=== PATIENT | female | born 1955 | race Caucasian/White ===

== ENCOUNTER 2016-12-02 20:25 | Emergency (ER) | payer MEDICARE, MEDICAID ==
[~2016-12-02] VITALS: Ht 162.6 cm; Wt 45.4 kg
[~2016-12-02 20:25] MED LIST: BISA10SU45 PO; CARI-277 OR; DIPH1TAB; HYDR4TAB21 PO; PHENERGAN PO; TRAZ50TA2 PO
[2016-12-02 21:49] LABS: Basophils # (auto) 0.1 uL; Nucleated Red Blood Cells % 0.1 %; White Blood Cell 5.3 10^3/uL (4.4-10.8)
[2016-12-02 21:51] LABS: Eosinophils # (auto) 0.1 uL; Eosinophils % (auto) 1.2 % (0.0-7.0); Hematocrit 28.2 % (36.0-46.0); Hemoglobin 8.6 g/dL (12.2-16.2); Lymphocytes # (auto) 1.5 uL; Lymphocytes % (auto) 28.9 % (10.0-50.0); Mean Corpuscular Hemoglobin 23.3 pg (28.0-32.0); Mean Corpuscular Hgb Conc. 30.6 g/dL (32.0-36.0); Mean Corpuscular Volume 76.3 fL (80.0-100.0); Mean Platelet Volume 7.7 fL (6.9-10.8); Monocytes # (auto) 0.8 uL; Monocytes % (auto) 14.7 % (0.0-12.0); Neutrophils # (auto) 2.8 uL; Neutrophils % (auto) 53.2 % (37.0-80.0); Platelet Count (auto) 340 10^3/uL (140-450)
[2016-12-02 21:58] LABS: Red Cell Distribution Width 25.7 % (11.8-14.3)
[2016-12-02] MEDS ORDERED: ONDANSETRON HCL 4 MG/2 ML VIAL IV ONE (22:00)
[2016-12-02] MEDS ORDERED: HYDROmorphone HCL 2 MG/ML VL IV ONE ×2 (22:00→23:00)
[2016-12-02] MEDS ORDERED: SODIUM CHLORIDE 0.9% 1,000 ML IV ONE (22:00)
[2016-12-02 22:04] LABS: INR 1.01 (0.9-1.15); Partial Thromboplastin Time 32.7 sec (22.64-33.71)
[2016-12-02 22:14] LABS: Albumin 2.7 g/dL (3.4-5.0); Alkaline Phosphatase 66 U/L (45-117); Amylase 41 U/L (25-115); Anion Gap 5 (5-15); Aspartate Aminotransferase 42 U/L (15-37); BUN/Creatinine Ratio 38.2; Bilirubin, Total 0.2 mg/dL (0.2-1.0); Blood Urea Nitrogen 13 mg/dL (7-18); Calcium 7.6 mg/dL (8.5-10.1); Carbon Dioxide 28 mmol/L (21-32); Chloride 104 mmol/L (98-107); GFR African American 252 mL/min; GFR Non-African American 208 mL/min; Glucose 89 mg/dL (74-106); Magnesium 2.1 mg/dL (1.6-2.6); Platelet Estimate Adequate; Potassium 4.2 mmol/L (3.5-5.1); Sodium 137 mmol/L (136-145); Total Protein 5.6 g/dL (6.4-8.2)
[2016-12-02 22:18] LABS: Ovalocytes FEW; Stomatocytes Few
[2016-12-02 22:19] LABS: Anisocytosis Moderate; Hypochromia Moderate
[2016-12-02 22:20] LABS: Microcytosis Moderate
[2016-12-02 22:26] LABS: Giant Platelets Few
[2016-12-02 22:27] LABS: Tear Drop Cells FEW
[2016-12-02 22:28] LABS: Polychromasia Slight
[2016-12-02 22:29] LABS: Schistocytes FEW
[2016-12-02 23:06] LABS: Urine Bilirubin Negative (Negative); Urine Blood Negative /uL (Negative); Urine Color Yellow (Yellow); Urine Glucose Normal (Normal); Urine Ketone Negative (Negative); Urine Nitrite Negative (Negative); Urine RBC <1 /hpf (0 - 4); Urine Squamous Epithelial Cell FEW /hpf (<5); Urine Urobilinogen Normal (Negative); Urine pH 6.5 (5.0-8.0)
[2016-12-02 23:14] VITALS: BP 143/82
== END 2016-12-03 00:37 | disposition home or self-care (01) ==
LOC: ER 20:28
DX: K59.00 Constipation, unspecified (principal); I48.91 Unspecified atrial fibrillation; J45.909 Unspecified asthma, uncomplicated; I12.9 Hypertensive chronic kidney disease with stage 1 through stage 4 chronic kidney disease, or unspecified chronic kidney disease; N18.9 Chronic kidney disease, unspecified; K21.9 Gastro-esophageal reflux disease without esophagitis; M19.90 Unspecified osteoarthritis, unspecified site; Z98.51 Tubal ligation status; Z90.710 Acquired absence of both cervix and uterus; Z85.07 Personal history of malignant neoplasm of pancreas; K86.1 Other chronic pancreatitis; Z79.899 Other long term (current) drug therapy; Z91.041 Radiographic dye allergy status
CPT/HCPCS: 36415; 71010; 74176; 80053; 80307; 81001; 82150; 83690; 83735; 84484; 85025; 85610; 85730; 93005; 96361; 96374; 96375; 96376; 99285; J1170; J2405

== ENCOUNTER 2017-01-26 01:19 | Emergency (ER) | payer MEDICARE, MEDICAID ==
[~2017-01-26] VITALS: Ht 162.6 cm; Wt 47.6 kg
[2017-01-26 01:39] VITALS: BP 131/52
[2017-01-26 02:23] LABS: Urine RBC None Seen /hpf (0 - 4)
[2017-01-26 02:36] LABS: Urine Bilirubin Negative (Negative); Urine Blood Negative /uL (Negative); Urine Glucose Normal (Normal); Urine Ketone Negative (Negative); Urine Nitrite Negative (Negative); Urine Squamous Epithelial Cell FEW /hpf (<5); Urine Urobilinogen Normal (Negative); Urine pH 6.5 (5.0-8.0)
[2017-01-26 02:39] LABS: Urine Color Straw (Yellow)
== END 2017-01-26 04:11 | disposition left against medical advice (07) ==
LOC: ER 01:24
DX: R07.9 Chest pain, unspecified (principal); Z53.21 Procedure and treatment not carried out due to patient leaving prior to being seen by health care provider
CPT/HCPCS: 71010; 80307; 81001; 93005

== ENCOUNTER 2019-05-13 12:45 | Inpatient (IN) | payer MEDICARE, MEDICAID ==
[2019-05-13] VITALS (27 sets, daily range): BP systolic 88–120; BP diastolic 48–79
[~2019-05-13] VITALS: Ht 160 cm; Wt 39.6 kg
[~2019-05-13 12:45] MED LIST changes: -HYDR4TAB21 PO; +HYDR4TAB90 PO
[2019-05-13] MEDS ORDERED: SODIUM CHLORIDE 0.9% 1,000 ML IV ONE ×2 (12:53)
[2019-05-13] MEDS ORDERED: cefTRIAXone 1GM/50ML D5W 50 ML IV ONE (13:00)
[2019-05-13] MEDS ORDERED: ETOMIDATE (2MG/ML) 20ML VIAL IV ONE ×2 (13:09→13:45)
[2019-05-13] MEDS ORDERED: SUCCINYLCHOLINE CHLORIDE 20 MG/ML 10ML VIAL IV ONE ×2 (13:09→13:45)
[2019-05-13] MEDS ORDERED: MIDAZOLAM DRIP 50 mg/50mL 50 ML IV ONE (13:10)
[2019-05-13 13:25] LABS: Basophils # (auto) 0 10 ^3/uL (0-0.2); Basophils % (auto) 0.3 % (0.0-2.0); Eosinophils # (auto) 0.1 10 ^3/uL (0-0.8); Monocytes # (auto) 0.8 10 ^3/uL (0-1.3); Monocytes % (auto) 7.2 % (0.0-12.0); Neutrophils # (auto) 6.6 10 ^3/uL (1.6-8.6); White Blood Cell 10.7 10^3/uL (4.4-10.8)
[2019-05-13 13:27] LABS: Eosinophils % (auto) 0.6 % (0.0-7.0); Hematocrit 33.8 % (36.0-46.0); Hemoglobin 10.3 g/dL (12.2-16.2); Lymphocytes # (auto) 3.3 10 ^3/uL (0.4-5.4); Lymphocytes % (auto) 30.6 % (10.0-50.0); Mean Corpuscular Hemoglobin 22.2 pg (28.0-32.0); Mean Corpuscular Hgb Conc. 30.5 g/dL (32.0-36.0); Mean Corpuscular Volume 72.6 fL (80.0-100.0); Neutrophils % (auto) 61.3 % (37.0-80.0); Nucleated Red Blood Cells % 0.2 %; Platelet Count (auto) 321 10^3/uL (140-450); Red Blood Cells 4.65 10^6/uL (4.0-5.20); Red Cell Distribution Width 18.3 % (11.8-14.3)
[2019-05-13] MEDS: MIDAZOLAM DRIP 50 mg/50mL 50 ML IV SCH ×2 (13:30→22:46)
[2019-05-13 13:43] LABS: INR 1.18 (0.9-1.15); Partial Thromboplastin Time 23.9 sec (23.64-32.05)
[2019-05-13] MEDS ORDERED: NOREPINEPHRINE 8 MG/250ML KIT 250 ML IV ONE (13:43)
[2019-05-13] MEDS: NOREPINEPHRINE 8 MG/250ML KIT 250 ML IV SCH (13:44)
[2019-05-13 13:48] LABS: Albumin 2.7 g/dL (3.4-5.0); Anion Gap 7 (5-15); Blood Urea Nitrogen 14 mg/dL (7-18); Calcium 7.8 mg/dL (8.5-10.1); Carbon Dioxide 26 mmol/L (21-32); Chloride 108 mmol/L (98-107); Glucose 241 mg/dL (74-106); Potassium 3.1 mmol/L (3.5-5.1); Sodium 141 mmol/L (136-145)
[2019-05-13 13:51] LABS: Lactic Acid w/Reflex 3.8 mmol/L (0.4-2.0)
[2019-05-13 13:53] LABS: Alanine Aminotransferase 35 U/L (13-56); Alkaline Phosphatase 179 U/L (45-117); Aspartate Aminotransferase 30 U/L (15-37); BUN/Creatinine Ratio 15.4; Bilirubin, Total 0.3 mg/dL (0.2-1.0); GFR African American 80 mL/min; GFR Non-African American 66 mL/min; Total Protein 5.9 g/dL (6.4-8.2)
[2019-05-13] MEDS ORDERED: ONDANSETRON HCL 4 MG/2 ML VIAL IV ONE (15:30)
[2019-05-13] MEDS ORDERED: MORPHINE SULFATE 4 MG/ML SYR/VIAL IV ONE (15:30)
[2019-05-13] MEDS ORDERED: NITROGLYCERIN 0.4 MG SL TAB SL PRN (16:15)
[2019-05-13] MEDS ORDERED: BISACODYL 10 MG RECT SUPP PR ONE (16:15)
[2019-05-13] MEDS ORDERED: VANCOMYCIN PER PHARMACY 0 MG IV SCH (16:15)
[2019-05-13] MEDS ORDERED: ACETAMINOPHEN 500 MG TAB PO PRN (16:15)
[2019-05-13] MEDS ORDERED: MORPHINE SULF INJ 2 MG/ML SYRINGE 1ML IV PRN (16:15)
--- NOTE | 2019-05-13 16:45 | NUR ---
REPORT Report received from Rogelio FERNANDEZ, awaiting for patient to arrive into room 112.
[2019-05-13] MEDS ORDERED: VANCOMYCIN 750mg/250ml 250 ML IV SCH (17:00)
--- NOTE | 2019-05-13 17:00 | NUR ---
RECEIVED PATIENT Received patient on mechanical ventilator sedated on Versed at 10mg. Patient opens eyes to verbal stimuli, withdrawals to pain, pupils reactive to light and positive gag reflex. Sinus rhythm in the 80's on bedside monitor, pulses palpable on upper/lower extremities and no edema observed. OG tube checked and verified via air bolus: clamped. Abdomen soft, non tender and non distended with hypoactive bowel sounds. Last bowel movement 05/13/2019 per ER nurse report. Kwan catheter draining to gravity clear yellow urine to gravity. Clayton cath to the right upper chest infusing Versed at 10mg and Levophed at 12mcg. Left subclavian(TLC): good blood return and flushes easily infusing NS at TKO for ANTIBIOTICS and NS with 20 of KCL at 100ml/hr. Skin intact other than scarring on abdomen and blanchable redness to bilateral heels. Call light within reach and bed at lowest position.
--- NOTE | 2019-05-13 17:30 | NUR ---
FAMILY Family at bedside updated on patient condition. Informed patient of policies for visiting. Questions answered.
[2019-05-13] MEDS: SOD CHL 0.9%/ KCL 20MEQ 1,000 ML IV SCH (17:45)
[2019-05-13] MEDS: LACTULOSE 20Gm/30ML SOLN GT SCH (18:00)
[2019-05-13] MEDS: IPRATROPIUM BROM 0.5 MG/2.5ML INH SOL NEB SCH (18:25)
[2019-05-13] MEDS: BUDESONIDE (INHALATION) 0.5 MG/2 ML NEB NEB SCH (18:25)
[2019-05-13] MEDS: ALBUTEROL SULF 2.5 MG/0.5ML(0.5%) NEB SOLN NEB SCH (18:25)
--- NOTE | 2019-05-13 19:00 | NUR ---
Opening note Assumed care of patient at this time. Report received from day shift RN. POC reviewed. Head to toe assessment complete, see intervention spreadsheet for complete details. Received pt intubated/sedated on levophed. IV sites benign. Kwan catheter draingig to gravity. VSS. Suction and BVM at bedside. Bed locked and in lowest position, safety precautions in place. Will continue with care.
--- NOTE | 2019-05-13 20:00 | NUR ---
Temp Oral temp 101.7 cooling measures initiated. VSS.
--- NOTE | 2019-05-13 20:15 | NUR ---
Elimination Pt incontinent of loose stool. Pt cleaned and reposition. Pt tolerated well.
[2019-05-13] MEDS: PROPOFOL 100 ML IV SCH (21:06)
--- NOTE | 2019-05-13 21:49 | NUR ---
Temp reassessment 101.3 continue with cooling measures.
--- NOTE | 2019-05-13 21:50 | NUR ---
Dr Holder at [facility]. Update POC with family. Orders received.
[2019-05-13] MEDS: fentaNYL Drip 2500mCg/250mlNS 250 ML IV SCH (21:57)
[2019-05-13] MEDS: METOCLOPRAMIDE HCL 5MG/ml INJ 2ml VIAL IV SCH (22:00)
[2019-05-13] MEDS: MEROPENEM 1GM IVPB 100 ML IV SCH (22:01)
--- NOTE | 2019-05-13 22:15 | NUR ---
Urine sample and MRSA sent to lab at this time.
[2019-05-14] VITALS (91 sets, daily range): BP systolic 62–164; BP diastolic 34–131
[2019-05-14] MEDS: IPRATROPIUM BROM 0.5 MG/2.5ML INH SOL NEB SCH ×4 (00:12→18:45)
[2019-05-14] MEDS: ALBUTEROL SULF 2.5 MG/0.5ML(0.5%) NEB SOLN NEB SCH ×4 (00:12→18:45)
[2019-05-14 00:33] LABS: Urine Bacteria FEW /hpf (None Seen); Urine Blood Negative /uL (Negative); Urine Hyaline Cast MANY /lpf (0 - 2); Urine Mucus FEW (None Seen); Urine Specific Gravity 1.017 (1.001-1.035); Urine WBC 3 /hpf (0 - 5)
[2019-05-14] MEDS: NOREPINEPHRINE 8 MG/250ML KIT 250 ML IV SCH (03:15)
[2019-05-14] MEDS: SOD CHL 0.9%/ KCL 20MEQ 1,000 ML IV SCH ×3 (03:22→22:15)
--- NOTE | 2019-05-14 03:36 | NUR ---
Bed bath/elimination PT given bed bad with andrey and oral care. PT tolerated well. Pt had formed stool with liquid stool. No skin integrity changes noted. Suction tubing and canisters changed at this time. Safety precautions maintained.
--- NOTE | 2019-05-14 03:46 | NUR ---
Titrating patient as tolerated. Addendum: 05/14/19 at 0346 by CLARA PENA RN Amended: Links added.
[2019-05-14 04:09] LABS: Hemoglobin 10.9 g/dL (12.2-16.2); Mean Corpuscular Hgb Conc. 30.1 g/dL (32.0-36.0)
[2019-05-14 04:12] LABS: Mean Corpuscular Hemoglobin 22.1 pg (28.0-32.0); Mean Corpuscular Volume 73.2 fL (80.0-100.0); Platelet Count (auto) 245 10^3/uL (140-450); Red Blood Cells 4.92 10^6/uL (4.0-5.20); Red Cell Distribution Width 19.2 % (11.8-14.3)
[2019-05-14 04:13] LABS: White Blood Cell 32.9 10^3/uL (4.4-10.8)
[2019-05-14 04:14] LABS: Basophils % (manual) 0 (0.0-2.0); Blast Cells 0; Eosinophils % (manual) 0 (0-7); Metamyelocytes % 0; Myelocytes % 0; Promyelocytes % 0; Reactive Lymphocytes 0
--- NOTE | 2019-05-14 04:27 | NUR ---
Temp 0400 temp 100.7. Tylenol suppository given.
[2019-05-14 04:28] LABS: Potassium 3.9 mmol/L (3.5-5.1)
[2019-05-14] MEDS: ACETAMINOPHEN 650 MG RECT SUPP PR PRN ×2 (04:28→18:30)
[2019-05-14 04:34] LABS: Albumin 2.4 g/dL (3.4-5.0); BUN/Creatinine Ratio 16.5; Bilirubin, Total 0.4 mg/dL (0.2-1.0); Calcium 7.1 mg/dL (8.5-10.1); Total Protein 5.5 g/dL (6.4-8.2)
--- NOTE | 2019-05-14 04:53 | NUR ---
Temp reassessment 99.7. VSS.
[2019-05-14 05:46] LABS: Band Neutrophils % (manual) 1
[2019-05-14 05:47] LABS: Lymphocytes % (manual) 12 (10.0-50.0); Monocytes % (manual) 5 (0-12)
[2019-05-14] MEDS: METOCLOPRAMIDE HCL 5MG/ml INJ 2ml VIAL IV SCH (06:00)
[2019-05-14] MEDS: LACTULOSE 20Gm/30ML SOLN GT SCH ×4 (06:00→12:00)
[2019-05-14] MEDS: MEROPENEM 1GM IVPB 100 ML IV SCH ×3 (06:00→22:23)
[2019-05-14] MEDS: BUDESONIDE (INHALATION) 0.5 MG/2 ML NEB NEB SCH ×2 (06:03→18:45)
--- NOTE | 2019-05-14 06:07 | NUR ---
Per daughter gustavo Do not give Reglan, pt had taken it previously for constipation and had extrapyramidal symptoms and would prefer something else for constipation. Will convey to day shift.
--- NOTE | 2019-05-14 06:43 | NUR ---
Pt very awake, reaching for tube. Mittens placed on hands bilaterally, fent increased to 75 mcg.
--- NOTE | 2019-05-14 06:51 | NUR ---
Elimination Pt incontinent of loose stool. Pt cleaned and reposition. Pt tolerated well.
[2019-05-14] MEDS: MIDAZOLAM DRIP 50 mg/50mL 50 ML IV SCH (08:24)
--- NOTE | 2019-05-14 08:55 | NUR ---
Resumed care at 0715, orders reviewed and ongoing assessments being done. Remains intubated and sedated. She does open her eyes when her name is called and moves arms and legs. Not following any commands but sustains eye contact. 0800 temperature 100.3, applied ice packs and cool compress on forehead. Remains on Levophed gtt for BP support and infusing via central line, no signs of infiltration. Both heels red and off loading heels on pillows.
--- NOTE | 2019-05-14 09:34 | NUR ---
Daughter Kayley Woods in to visit. Made her aware of isolation precautions. Per daughter no history of MRSA but has history of MDRO and ESBL and possibly C-Diff. Contact precautions in place per hospital policy.
--- NOTE | 2019-05-14 10:32 | NUR ---
WOUND CARE NOTE: Wound care into see patient for skin integrity monitoring due to low Dawit score of 13 and intubation status putting patient to high risk for skin breakdown. Patient is 63 years old female with admitting diagnosis of Septic Shock. Patient with history of Pancreatic Cancer, A Fib, Anemia, anxiety, arthritis, asthma, Depression,Htn. Patient is resting in ICU bed in Rm. 112. Patient is intubated, sedated and mechanically ventilated. Patient appears to be in no pain using Lisa Zhou Faces Pain Scale. Skin assessment done with the assistance of patient's nurse, REBECCA Parra. No open wound noted, no pressure injury noted. Patient tolerated well. Reposition patient for comfort facing her left side, redistributed pressure points with pillows. REBECCA Parra and patient's family at bedside. RECOMMENDATION: Nursing to continue with BID/PRN cleaning and application Barrier cream to sacral, buttocks as preventative; frequent turning and repositioning schedule as condition permits, redistribute pressure points with pillows,keep heels elevated on pillows, continue monitoring by wound care while patient is mechanically ventilated. Addendum: 05/14/19 at 1704 by Urvashi Haynes RN Amended: Links added.
--- NOTE | 2019-05-14 10:34 | NUR ---
Urvashi wound care nurse in to round. Assisted with skin assessment, no wounds.
[2019-05-14] MEDS: VANCOMYCIN 750mg/250ml 250 ML IV SCH (11:51)
--- NOTE | 2019-05-14 12:05 | NUR ---
Respiratory note: PT PLACED ON CPAP TRIAL PS 8, PEEP +5, PER DR. KOCH ORDER. PT TOLERATING VENT CHANGE WELL. RN, AND FAMILY AT BEDSIDE. WILL CONTINUE TO MONITOR PT.
[2019-05-14] MEDS ORDERED: CARISOPRODOL 350 MG TAB PO PRN (12:45)
[2019-05-14] MEDS ORDERED: diazePAM 5 MG TAB PO PRN (14:00)
[2019-05-14] MEDS ORDERED: PROCHLORPERAZINE MALEATE 10 MG TAB PO PRN (14:00)
[2019-05-14] MEDS ORDERED: metroNIDAZOLE 500MG/100ML 100 ML IV SCH (14:00)
[2019-05-14] MEDS: GABAPENTIN 300 MG CAP PO SCH ×2 (14:00→22:00)
--- NOTE | 2019-05-14 15:24 | NUR ---
CPAP initiated at 1205 by Aubree TREVINO. Daughter Kayley at bedside. Versed off at 1140, Madan kept infusing during CPAP trial. History of severe chronic pain. Was able to participate and follow direction during trial. ABG was drawn and weaning parameters done by Johanny TREVINO. Dr. Holder in unit and reviewed data and assessed patient. Ordered to extubate. Extubated at 1410 by Johanny TREVINO without incident. Cool aerosol mask placed, 40% Fio2 initially, now 35% Fio2. Dr. Holder ordered CBC and lactic acid. Attempted to draw blood from central line to left SCV and also attempted to draw blood from right chest qing-cath. No blood return. Able to flush ports with ease. Appropriate pressure via IV pump. Notified Dr. Holder who was still in unit. Dr. Holder pulled line back approximately 2 cm. Blood return verified and blood drawn and sent to lab. Central line redressed.
[2019-05-14 15:30] LABS: Basophils # (auto) 0 10 ^3/uL (0-0.2); Basophils % (auto) 0.2 % (0.0-2.0); Hemoglobin 8.5 g/dL (12.2-16.2); Lymphocytes % (auto) 8.6 % (10.0-50.0)
[2019-05-14 15:34] LABS: Eosinophils # (auto) 0.1 10 ^3/uL (0-0.8); Eosinophils % (auto) 0.6 % (0.0-7.0); Hematocrit 27.4 % (36.0-46.0); Lymphocytes # (auto) 1.6 10 ^3/uL (0.4-5.4); Mean Corpuscular Hemoglobin 22.4 pg (28.0-32.0); Mean Corpuscular Hgb Conc. 30.9 g/dL (32.0-36.0); Mean Corpuscular Volume 72.4 fL (80.0-100.0); Monocytes # (auto) 1.2 10 ^3/uL (0-1.3); Monocytes % (auto) 6.3 % (0.0-12.0); Neutrophils # (auto) 16.1 10 ^3/uL (1.6-8.6); Neutrophils % (auto) 84.3 % (37.0-80.0); Platelet Count (auto) 153 10^3/uL (140-450); Red Blood Cells 3.79 10^6/uL (4.0-5.20); Red Cell Distribution Width 18.6 % (11.8-14.3); White Blood Cell 19.1 10^3/uL (4.4-10.8)
[2019-05-14] MEDS: fentaNYL 25MCG/HR 25 MCG/HR PAT TD SCH (15:59)
--- NOTE | 2019-05-14 16:53 | NUR ---
Daughter Kayley has remained at bedside. In no acute respiratory distress since extubation. Has had ice chips and tolerating.
[2019-05-14] MEDS ORDERED: TEMA30CA PO (17:11)
[2019-05-14] MEDS ORDERED: DIAZ10TA3 PO (17:11)
[2019-05-14] MEDS ORDERED: POLY335015 PO (17:11)
[2019-05-14] MEDS ORDERED: PROC10TA2 PO (17:11)
[2019-05-14] MEDS ORDERED: GABA300C10 PO (17:11)
[2019-05-14] MEDS ORDERED: FENT25DI TD (17:12)
[2019-05-14] MEDS: metroNIDAZOLE 500MG/100ML 100 ML IV SCH (17:23)
[2019-05-14] MEDS ORDERED: HYDR-4072 PO (17:45)
--- NOTE | 2019-05-14 18:47 | NUR ---
Body feeling hot, temperature up to 100.3 orally and drop in BP at 1834 71/50, rechecked and BP measured 62/50. Still able to answer questions and no compliant of dizziness. Had wean off Levophed Gtt at 1725, restarted for BP support. Tylenol suppository also given for temperature. Daughter Kayley remains at bedside.
--- NOTE | 2019-05-14 19:00 | NUR ---
Opening note Assumed care of patient at this time. Report received from day shift RN. POC reviewed. Head to toe assessment complete, see intervention spreadsheet for complete details. Received pt s/p extubation on day shift. Received pt on 2lts NC. VSS. Family at bedside. Pt tolerates ice chips. Pt has wet non-productive cough. Pt able to express needs. IV sites benign. Suction and BVM at bedside. Kwan catheter draining to gravity. Bed locked and in lowest position, safety precautions in place.
[2019-05-14] MEDS: HYDROcodone-ACET 10/325MG TAB PO PRN (19:53)
[2019-05-14] MEDS: fentaNYL Drip 2500mCg/250mlNS 250 ML IV SCH (21:06)
[2019-05-14] MEDS: PROPOFOL 100 ML IV SCH (21:06)
[2019-05-14] MEDS ORDERED: traZODone HCL 50 MG TAB PO SCH (22:00)
--- NOTE | 2019-05-14 22:00 | NUR ---
Catalino held Pt sleeping, VSS after pt complaining of pain and appearing to have anxiety and temp of 102.1.
[2019-05-15] VITALS (27 sets, daily range): BP systolic 102–149; BP diastolic 43–92
[2019-05-15] MEDS: metroNIDAZOLE 500MG/100ML 100 ML IV SCH ×2 (00:54→09:04)
[2019-05-15] MEDS: HYDROcodone-ACET 10/325MG TAB PO PRN ×3 (01:01→13:44)
[2019-05-15] MEDS: TEMAZEPAM 15 MG CAP PO PRN (01:01)
--- NOTE | 2019-05-15 03:35 | NUR ---
Unable to draw labs from either line, both lines flush but do not draw back. Notified lab techs. Will retry in am when patient is awake.
[2019-05-15] MEDS: VANCOMYCIN 750mg/250ml 250 ML IV SCH (04:56)
[2019-05-15] MEDS: MEROPENEM 1GM IVPB 100 ML IV SCH ×3 (06:07→21:34)
[2019-05-15] MEDS: GABAPENTIN 300 MG CAP PO SCH ×3 (06:10→21:34)
[2019-05-15] MEDS: IPRATROPIUM BROM 0.5 MG/2.5ML INH SOL NEB SCH ×3 (06:35→19:16)
[2019-05-15] MEDS: ALBUTEROL SULF 2.5 MG/0.5ML(0.5%) NEB SOLN NEB SCH ×3 (06:35→19:16)
[2019-05-15] MEDS: BUDESONIDE (INHALATION) 0.5 MG/2 ML NEB NEB SCH ×2 (06:35→19:07)
[2019-05-15 07:20] LABS: Eosinophils # (auto) 0.2 10 ^3/uL (0-0.8); Hemoglobin 8.6 g/dL (12.2-16.2); Lymphocytes # (auto) 1.2 10 ^3/uL (0.4-5.4); White Blood Cell 12.6 10^3/uL (4.4-10.8)
[2019-05-15 07:22] LABS: Basophils # (auto) 0 10 ^3/uL (0-0.2); Basophils % (auto) 0.3 % (0.0-2.0); Eosinophils % (auto) 1.9 % (0.0-7.0); Hematocrit 28.1 % (36.0-46.0); Lymphocytes % (auto) 9.9 % (10.0-50.0); Mean Corpuscular Hgb Conc. 30.5 g/dL (32.0-36.0); Monocytes # (auto) 0.9 10 ^3/uL (0-1.3); Monocytes % (auto) 6.9 % (0.0-12.0); Neutrophils # (auto) 10.2 10 ^3/uL (1.6-8.6); Platelet Count (auto) 172 10^3/uL (140-450); Red Cell Distribution Width 18.1 % (11.8-14.3)
[2019-05-15 07:40] LABS: BUN/Creatinine Ratio 10.2; Calcium 7.3 mg/dL (8.5-10.1); Potassium 3.3 mmol/L (3.5-5.1)
[2019-05-15] MEDS ORDERED: POTASSIUM EFFERVESENT TAB 25 MEQ GT ONE (08:30)
[2019-05-15] MEDS: POLYETHYLENE GLYCOL 17 GM PWDR PO PRN (11:39)
--- NOTE | 2019-05-15 11:49 | NUR ---
Resumed care at 0715, orders reviewed and ongoing assessments being done. In bed and awake upon arrival and interacting appropriately. In no acute respiratory distress. Extubated yesterday and remains on nasal cannula at 1L/min with adequate pulse oximetry. Contacted Dr. Rai at 0825 and reported low K level. 3.3, orders obtained for K replacement. Has been able to swallow and eat applesauce without difficulty. Obtained order for puree diet (Most of her teeth are absent). Drinking liquids without difficulty. Has also been able to swallow whole pills without difficulty. Dr. Rai rounded at 0955, assessed and data reviewed. Per Dr. Rai stable to transfer to the Telemetry floor. Daughter Kayley at bedside and made aware of plan of care. Dr. Holder rounded at 1048. Continue current plan of care. Luciano SAP BPC ARCHITECT in at 1115, assisted out of bed to lounge chair without incident. Remains in chair at this time, daughter in room.
--- NOTE | 2019-05-15 13:32 | NUR ---
Pt Arrived on Unit Pt arrived on unit from ICU via stretcher. Pt is a/ox4 with no s/s of distress or SOB. Placed pt on 1 L NC. Daughter is at bedside. Safety measures maintained with call light within reach, bed in lowest position and side rails up. Will continue to monitor.
--- NOTE | 2019-05-15 13:48 | NUR ---
Manjula Zaldivar assisted with lunch. Ate only a few bites of lunch, puree diet. Room assignment given and assisted to bed. Report given to Pilar FERNANDEZ. Transported to room 202 via bed and arrived without incident. Only personal belonging, ring, with patient. Pilar FERNANDEZ met us in room. Manjula Zaldivar at bedside.
[2019-05-15] MEDS: MORPHINE SULF INJ 2 MG/ML SYRINGE 1ML IV PRN ×2 (16:00→21:35)
--- NOTE | 2019-05-15 18:08 | NUR ---
Pt Requests Cough Syrup Since extubation, pt has a moist cough. Requesting cough syrup. Will page hospitalist. Addendum: 05/15/19 at 1814 by RADHA ZUNIGA RN RN paged back. Orders received, read back and verified.
[2019-05-15] MEDS ORDERED: guaiFENesin-DM 100/10mg/5ml SYR PO PRN (18:15)
[2019-05-15] MEDS: BISACODYL 10 MG RECT SUPP PR PRN (19:01)
--- NOTE | 2019-05-15 19:25 | NUR ---
Opening Shift Note Assumed care of patient, awake and alert, and resting on bed. Family at bedside. No S/S of distress/SOB or pain. Patient is on 1L NC and tolerating well. Instructed on POC and to call for assist PRN, will continue to monitor for changes Q1hr and PRN. Bed is in lowest position, bed rails 2x, bed wheels locked. Call light and bedside table are within reach.
--- NOTE | 2019-05-15 21:30 | NUR ---
Bowel Movement Patient had a BM large/soft. Provided pericare and changed bedding. Repositioned patient. Patient tolerated well. Bed is in lowest position, bed rails 2x, bed wheels locked. Call light and bed side table are within reach.
[2019-05-16] MEDS: VANCOMYCIN 750mg/250ml 250 ML IV SCH (01:16)
[2019-05-16] MEDS: MORPHINE SULF INJ 2 MG/ML SYRINGE 1ML IV PRN ×3 (04:20→21:29)
[2019-05-16 05:00] VITALS: BP 126/52
[2019-05-16] MEDS: ALBUTEROL SULF 2.5 MG/0.5ML(0.5%) NEB SOLN NEB SCH ×3 (06:01→18:01)
[2019-05-16] MEDS: IPRATROPIUM BROM 0.5 MG/2.5ML INH SOL NEB SCH ×3 (06:01→18:01)
[2019-05-16] MEDS: BUDESONIDE (INHALATION) 0.5 MG/2 ML NEB NEB SCH ×2 (06:01→18:01)
[2019-05-16] MEDS: GABAPENTIN 300 MG CAP PO SCH ×3 (06:10→21:28)
[2019-05-16] MEDS: MEROPENEM 1GM IVPB 100 ML IV SCH (06:10)
[2019-05-16] MEDS: HYDROcodone-ACET 10/325MG TAB PO PRN (06:11)
--- NOTE | 2019-05-16 07:00 | NUR ---
Closing shift note Endorsed care to morning nurse. No pain noted at this time, patient has no s/s of distress or SOB.
--- NOTE | 2019-05-16 08:15 | NUR ---
Opening Shift Note Assumed care of patient, awake, alert, and oriented. No S/S of distress/SOB or pain. Bed in lowest/locked position, bed rails up x2, call light within reach. Instructed on POC and to call for assist PRN. Will continue to monitor for changes Q1hr and PRN.
[2019-05-16 09:00] VITALS: BP 90/53
--- NOTE | 2019-05-16 09:04 | NUR ---
INFECTION CONTROL SPOKE WITH [facility], INFECTION CONTROL RE: PATIENT CONTACT ISOLATION. PER [facility]: PATIENT TO REMAIN ON CONTACT ISO D/T HISTORY OF CRE AND NO FURTHER INDICATION CRE IS NOT ACTIVE AT THIS TIME.
--- NOTE | 2019-05-16 09:25 | NUR ---
PT Patient refused to be OOB or do PT during morning visit and stated "I just started sleeping". REBECCA Rodriguez was notified about pt's refusal. Addendum: 05/16/19 at 0927 by SHOBHA GRAY PTT Amended: Links added.
[2019-05-16] MEDS: POLYETHYLENE GLYCOL 17 GM PWDR PO PRN (11:10)
[2019-05-16] MEDS ORDERED: diphenhdrAMINE HCL 50 MG/1 ML VL IV ONE (11:15)
[2019-05-16] MEDS ORDERED: CATHFLO ACTIVASE (ALTEPLASE) 2 MG VIAL IV ONE (11:30)
--- NOTE | 2019-05-16 11:39 | NUR ---
ILIA RECEIVED CALL FROM STEVEN IN [place] RE: PATIENT POSITIVE FOR MDRO IN SPUTUM AND URINE. MD STANLEY
[2019-05-16] MEDS: BISACODYL 10 MG RECT SUPP PR PRN (12:10)
[2019-05-16 13:00] VITALS: BP 100/44
[2019-05-16] MEDS ORDERED: cefTRIAXone 1GM/50ML D5W 50 ML IV ONE (13:45)
[2019-05-16 15:12] LABS: Basophils # (auto) 0 10 ^3/uL (0-0.2); Calcium 7.7 mg/dL (8.5-10.1); Eosinophils # (auto) 0.1 10 ^3/uL (0-0.8); Hemoglobin 7.9 g/dL (12.2-16.2); Lymphocytes # (auto) 0.9 10 ^3/uL (0.4-5.4); Monocytes # (auto) 0.5 10 ^3/uL (0-1.3); Potassium 3.7 mmol/L (3.5-5.1)
[2019-05-16 15:14] LABS: Basophils % (auto) 0.7 % (0.0-2.0); Eosinophils % (auto) 2.1 % (0.0-7.0); Hematocrit 26.2 % (36.0-46.0); Mean Corpuscular Hemoglobin 21.7 pg (28.0-32.0); Mean Corpuscular Hgb Conc. 30.3 g/dL (32.0-36.0); Mean Corpuscular Volume 71.7 fL (80.0-100.0); Monocytes % (auto) 7.6 % (0.0-12.0); Neutrophils % (auto) 76.6 % (37.0-80.0); Platelet Count (auto) 211 10^3/uL (140-450); Red Blood Cells 3.65 10^6/uL (4.0-5.20); Red Cell Distribution Width 18.3 % (11.8-14.3); White Blood Cell 6.6 10^3/uL (4.4-10.8)
--- NOTE | 2019-05-16 15:41 | NUR ---
Stave Block Roller consult regarding resuming Home Health. Pt was previously on Service with [facility] and will be resuming upon discharge. Jess contacted and information faxed to [facility]. [id number] received and services to resume upon discharge. Will notify covering nurse and SW II of the above.
--- NOTE | 2019-05-16 15:44 | NUR ---
assessment Patient is a 63 year old female who is alert and oriented. Patients cognitive abilities are intact. Prior to admission patient lived home with family and functioned with assistance. Per patient she will return home to her prior living arrangements post discharge and family will transport her home. Patient informed me her PCP is Dr Korey Decker. Patient has a wheelchair, cane, and fww for home use. Patient informed me she has good family support. Patient informed me she is on service with [facility]. Patient informed me her son is her caregiver. Patient informed me she has no safety concerns regarding returning home on discharge. I informed patient she has a right to speak to a social director regarding all care. I informed patient she has a right to participate in any and all discharge planning. Patient has a POA and advanced directive. Patients daughter Kayley is her POA. Patient verbalized understanding and agreed to discharge plan. Addendum: 05/16/19 at 1547 by Ariana HASKINS Amended: Links added.
--- NOTE | 2019-05-16 16:09 | NUR ---
PAIN PATIENT C/O PAIN 10/10 TO HER BACK, ACHY AND STRONG PER PATIENT. WILL MEDICATE PER MD ORDERS
[2019-05-16 17:00] VITALS: BP 97/45
[2019-05-16] MEDS: diphenhdrAMINE HCL 50 MG/1 ML VL IV PRN ×2 (17:29→23:50)
--- NOTE | 2019-05-16 19:20 | NUR ---
Opening Shift Note Assumed care of patient, awake and alert. Family at bedside. No S/S of distress/SOB. Patient complains of pain will medicate per MD order. Instructed on POC and to call for assist PRN, will continue to monitor for changes Q1hr and PRN. Bed is in lowest position, bed wheels locked, bed rails 2x. Call light and bedside table are within reach.
[2019-05-16] MEDS: TEMAZEPAM 15 MG CAP PO PRN (21:28)
--- NOTE | 2019-05-16 21:29 | NUR ---
Patient complains of pain. Patient states pain level is 9. Patient states pain location is mid abdomen. Medicated per MD order. Will reassess pain level.
--- NOTE | 2019-05-16 21:59 | NUR ---
Pain reassessment Patient states pain level is 3. Patient is resting comfortably in bed and states pain is tolerable. Call light and bedside table are within reach. Will continue to monitor Q1 and PRN.
[2019-05-16 22:00] VITALS: BP 122/84
[2019-05-17] MEDS: MORPHINE SULF INJ 2 MG/ML SYRINGE 1ML IV PRN ×3 (02:20→19:59)
[2019-05-17 05:00] VITALS: BP 110/69
[2019-05-17 05:37] LABS: Basophils # (auto) 0 10 ^3/uL (0-0.2); Eosinophils # (auto) 0.2 10 ^3/uL (0-0.8); Hemoglobin 7.5 g/dL (12.2-16.2); Mean Corpuscular Volume 71.5 fL (80.0-100.0)
[2019-05-17 05:43] LABS: Basophils % (auto) 0.7 % (0.0-2.0); Eosinophils % (auto) 3.7 % (0.0-7.0); Lymphocytes # (auto) 1.2 10 ^3/uL (0.4-5.4); Lymphocytes % (auto) 23.3 % (10.0-50.0); Mean Corpuscular Hemoglobin 22.4 pg (28.0-32.0); Mean Corpuscular Hgb Conc. 31.2 g/dL (32.0-36.0); Monocytes # (auto) 0.5 10 ^3/uL (0-1.3); Monocytes % (auto) 9.8 % (0.0-12.0); Neutrophils # (auto) 3.3 10 ^3/uL (1.6-8.6); Neutrophils % (auto) 62.5 % (37.0-80.0); Platelet Count (auto) 219 10^3/uL (140-450); Red Blood Cells 3.36 10^6/uL (4.0-5.20); Red Cell Distribution Width 17.9 % (11.8-14.3); White Blood Cell 5.2 10^3/uL (4.4-10.8)
[2019-05-17] MEDS: IPRATROPIUM BROM 0.5 MG/2.5ML INH SOL NEB SCH ×3 (05:59→18:27)
[2019-05-17] MEDS: ALBUTEROL SULF 2.5 MG/0.5ML(0.5%) NEB SOLN NEB SCH ×3 (05:59→18:27)
[2019-05-17] MEDS: BUDESONIDE (INHALATION) 0.5 MG/2 ML NEB NEB SCH ×2 (06:00→18:27)
--- NOTE | 2019-05-17 07:10 | NUR ---
Opening Shift Note: Assumed care of patient, awake and alert. No S/S of distress/SOB or pain. Patient on [address] in place, patent and draining, hung lower than bladder. Bed in lowest locked position, side rails up x 2, call light within reach. Patient instructed on POC and to call for assist PRN, will continue to monitor for changes Q1hr and PRN.
--- NOTE | 2019-05-17 07:30 | NUR ---
Closing shift note Patient is resting comfortably in bed. No s/s of distress or SOB. Endorsed care to morning shift RN.
[2019-05-17] MEDS: GABAPENTIN 300 MG CAP PO SCH ×3 (08:14→22:10)
[2019-05-17 09:00] VITALS: BP 104/62
[2019-05-17] MEDS: cefTRIAXone 1GM/50ML D5W 50 ML IV SCH (09:24)
--- NOTE | 2019-05-17 09:53 | NUR ---
PT Patient refused to do PT or OOB activities and wanted to eat breakfast. REBECCA Marrero was notified on patient's refusal. Addendum: 05/17/19 at 0954 by SHOBHA GRAY PTT Amended: Links added.
--- NOTE | 2019-05-17 10:02 | NUR ---
PAIN ASSESSMENT Patient states pain level 9/10 in abdomen. Ordered pain medications given. Will reassess.
--- NOTE | 2019-05-17 10:32 | NUR ---
PAIN REASSESSMENT: Patient states pain level 5/10 at this time.
--- NOTE | 2019-05-17 10:45 | NUR ---
DR. PHILLIPS: Dr. Beavers at bedside. Discussed POC with patient. Patient verbally agreed.
[2019-05-17] MEDS: BISACODYL 10 MG RECT SUPP PR PRN (12:17)
[2019-05-17] MEDS: POLYETHYLENE GLYCOL 17 GM PWDR PO PRN (12:18)
[2019-05-17 12:44] VITALS: BP 144/55
[2019-05-17] MEDS: diphenhdrAMINE HCL 50 MG/1 ML VL IV PRN ×2 (12:45→21:35)
--- NOTE | 2019-05-17 13:02 | NUR ---
PT Patient refused to be OOB or do PT during second morning visit. Addendum: 05/17/19 at 1303 by SHOBHA GRAY PTT Amended: Links added.
--- NOTE | 2019-05-17 13:30 | NUR ---
Patient sitting in bedside chair with family at bedside.
[2019-05-17] MEDS: SIMETHICONE 80 MG CHEWABLE TABLET PO PRN (14:08)
[2019-05-17] MEDS: fentaNYL 25MCG/HR 25 MCG/HR PAT TD SCH (14:08)
[2019-05-17 16:43] VITALS: BP 130/71
--- NOTE | 2019-05-17 19:22 | NUR ---
CLOSING NOTE: Patient resting in bed. No S/S of pain, distress or SOB at this time. Respirations even and unlabored. Care endorsed to NOC RN.
--- NOTE | 2019-05-17 19:40 | NUR ---
OPENING NOTE REPORT RECEIVED FROM DAY SHIFT RN PATIENT IS A/OX4 RESTING IN BED. FAMILY IS AT BEDSIDE. PATIENT STATES SHE IS IN "A LOT OF PAIN" AND RATES PAIN 10/10. PATIENT UPSET THAT SHE ONLY HAS MORPHINE AND NORCO AVAILABLE FOR PAIN. PATIENT VERBALIZED THAT SHE WOULD LIKE "SOMETHING STRONGER FOR PAIN", BUT IN THE MEANTIME WILL TAKE THE MORPHINE DUE TO HER PAIN LEVEL. WILL NOTIFY HOSPITALIST OF PATIENT REQUEST. WILL MEDICATE PER PATIENT REQUEST. POC DISCUSSED WITH PATIENT AND FAMILY MEMBER. CALL LIGHT WITHIN REACH.
--- NOTE | 2019-05-17 19:59 | NUR ---
PAIN PATIENT REQUESTS "STRONGEST PAIN MED AVAILABLE". PATIENT RATES PAIN 10/10 TO ABDOMEN. MORPHINE GIVEN ORDERED BY MD. SEE EMAR FOR DETAILS WILL REASSESS IN 30 MIN
--- NOTE | 2019-05-17 20:18 | NUR ---
CHANGE IN PAIN MEDICATION SPOKE WITH AT NURSES STATION. PATIENT STATES THAT THE MORPHINE THAT SHE IS TAKING "DOESN'T WORK", AND WOULD LIKE "SOMETHING STRONGER". NEW ORDER TO STOP MORPHINE. VERBAL ORDER FOR DILAUDID 1MG Q4H PRN FOR SEVERE PAIN ORDER READ BACK AND VERIFIED. WILL CARRY OUT ORDER
--- NOTE | 2019-05-17 20:29 | NUR ---
PAIN REASSESSMENT PATIENT RESTING COMFORTABLY IN BED, EYES CLOSED NO SIGNS OF PAIN AT THIS TIME
[2019-05-17 21:32] VITALS: BP 102/61
--- NOTE | 2019-05-17 21:40 | NUR ---
BM PATIENT HAD MEDIUM SIZED, FORMED BROWN BOWEL MOVEMENT. PATIENT CLEANED UP WITH ASSISTANCE OF DEO BELLA PATIENT TOLERATED WELL
[2019-05-17] MEDS: TEMAZEPAM 15 MG CAP PO PRN (22:11)
[2019-05-18] MEDS: HYDROmorphone HCL 2 MG/ML VL IV PRN ×5 (01:29→20:48)
--- NOTE | 2019-05-18 01:29 | NUR ---
PAIN PATIENT C/O PAIN TO ABDOMEN, RATES PAIN AT 9/10 ON NUMERIC SCALE PATIENT REQUESTS DILAUDID. DILAUDID ADMINISTERED ORDERED. SEE EMAR FOR DETAILS.
--- NOTE | 2019-05-18 01:59 | NUR ---
PAIN REASSESSMENT PATIENT SLEEPING COMFORTABLY AT THIS TIME. VISIBLE RISE AND FALL OF CHEST NOTED. NO SIGNS OF PAIN OR DISTRESS AT THIS TIME.
[2019-05-18 04:52] VITALS: BP 101/63
[2019-05-18] MEDS: GABAPENTIN 300 MG CAP PO SCH ×3 (05:42→21:27)
--- NOTE | 2019-05-18 05:55 | NUR ---
PAIN PATIENT RATES PAIN AT 9/10 TO ABDOMEN PATIENT REQUESTS DILAUDID. DILAUDID GIVEN ORDERED WILL REASSESS IN 30 MINUTES
[2019-05-18 06:00] LABS: Basophils # (auto) 0.1 10 ^3/uL (0-0.2); Eosinophils # (auto) 0.3 10 ^3/uL (0-0.8); Mean Corpuscular Hemoglobin 22.9 pg (28.0-32.0)
[2019-05-18] MEDS: ALBUTEROL SULF 2.5 MG/0.5ML(0.5%) NEB SOLN NEB SCH ×3 (06:00→19:59)
[2019-05-18] MEDS: IPRATROPIUM BROM 0.5 MG/2.5ML INH SOL NEB SCH ×3 (06:00→20:00)
[2019-05-18] MEDS: BUDESONIDE (INHALATION) 0.5 MG/2 ML NEB NEB SCH ×2 (06:00→20:00)
[2019-05-18 06:03] LABS: Basophils % (auto) 1.8 % (0.0-2.0); Eosinophils % (auto) 3.8 % (0.0-7.0); Hematocrit 26.7 % (36.0-46.0); Hemoglobin 8.5 g/dL (12.2-16.2); Lymphocytes # (auto) 1.9 10 ^3/uL (0.4-5.4); Lymphocytes % (auto) 25.2 % (10.0-50.0); Mean Corpuscular Hgb Conc. 31.8 g/dL (32.0-36.0); Mean Corpuscular Volume 72.1 fL (80.0-100.0); Monocytes % (auto) 13.1 % (0.0-12.0); Neutrophils # (auto) 4.3 10 ^3/uL (1.6-8.6); Neutrophils % (auto) 56.1 % (37.0-80.0); Nucleated Red Blood Cells % 0.1 %; Platelet Count (auto) 172 10^3/uL (140-450); White Blood Cell 7.7 10^3/uL (4.4-10.8)
--- NOTE | 2019-05-18 06:25 | NUR ---
PAIN REASSESSMENT PATIENT NOW RATES PAIN AT 2/10. PATIENT STATES SHE IS COMFORTABLE
--- NOTE | 2019-05-18 06:50 | NUR ---
CLOSING PATIENT IS RESTING COMFORTABLY IN BED. NO S/S OF DISTRESS AT THIS TIME. CALL LIGHT WITHIN REACH, FALL PRECAUTIONS IN PLACE WILL ENDORSE CARE TO AM SHIFT RN
--- NOTE | 2019-05-18 08:12 | NUR ---
DR Gregorio DOE BEDSIDE WITH PATIENT DISCUSSING PLAN OF CARE. ORDERS CARRIED OUT
[2019-05-18] MEDS: cefTRIAXone 1GM/50ML D5W 50 ML IV SCH (08:52)
[2019-05-18 09:18] VITALS: BP 98/67
[2019-05-18] MEDS: POLYETHYLENE GLYCOL 17 GM PWDR PO PRN (09:29)
--- NOTE | 2019-05-18 11:11 | NUR ---
NUTRITION ASSESSMENT NOTES Please refer to link notes of nutrition screen form filed under the intervention section of the plan of care for further details. Est. Energy Needs: 1385-0162 kcal (30-35 kcal/kg BW). Est. Protein Needs: 63-78 gms/day (1.2-1.5 gms/kg IBW). Will continue to monitor pertinent labs and reassess nutrient need prn Addendum: 05/18/19 at [address] Amended: Links added.
[2019-05-18 11:45] VITALS: BP 103/72
[2019-05-18] MEDS ORDERED: diphenhdrAMINE HCL 50 MG/1 ML VL ONE (13:26)
[2019-05-18] MEDS: diphenhdrAMINE HCL 50 MG/1 ML VL IV PRN ×2 (13:28→19:10)
[2019-05-18 13:32] VITALS: BP 135/47
[2019-05-18 16:35] VITALS: BP 108/66
--- NOTE | 2019-05-18 18:46 | NUR ---
PICC DRESSING CHANGED TO LEFT SUBCLAVIAN PICC LINE. PATIENT TOLERATED WELL.
--- NOTE | 2019-05-18 19:30 | NUR ---
OPENING NOTE REPORT RECEIVED FROM DAY SHIFT RN PATIENT IS A/OX4 RESTING IN BED. PATIENT C/O PAIN TO ABDOMEN, WANTS DILAUDID. EDUCATED PATIENT THAT MEDICATION WAS NOT YET DUE. OFFERED PATIENT OTHER AVAILABLE PAIN MEDICATIONS. PATIENT WANTS TO WAIT FOR DILAUDID. PHYSICAL ASSESSMENT DONE-SEE INTERVENTIONS. WILCOX HANGING TO GRAVITY, NO KINKS IN TUBING. PORTACATH TO RIGHT UPPER CHEST. TRIPLE LUMEN CENTRAL LINE TO LEFT CHEST.POC DISCUSSED WITH PATIENT AND ALL QUESTIONS ANSWERED. WILL MONITOR Q1H PRN THROUGHOUT SHIFT, CALL LIGHT WITHIN REACH.
--- NOTE | 2019-05-18 20:48 | NUR ---
PAIN PATIENT REPORTS 9/10 PAIN TO ABDOMEN. PATIENT REQUESTED DILAUDID. DILAUDID GIVEN ORDERED BY MD. WILL REASSESS IN 30 MINUTES
--- NOTE | 2019-05-18 21:18 | NUR ---
PAIN REASSESSMENT PATIENT RATES PAIN AT 4/10 NOW, STATES SHE IS COMFORTABLE.
[2019-05-18] MEDS: TEMAZEPAM 15 MG CAP PO PRN (21:28)
[2019-05-18 22:00] VITALS: BP 130/64
[2019-05-19] MEDS: HYDROmorphone HCL 2 MG/ML VL IV PRN ×3 (04:19→12:37)
--- NOTE | 2019-05-19 04:19 | NUR ---
PAIN PATIENT RATES PAIN 9/10, REQUESTED DILAUDID DILAUDID ADMINISTERED FOR PAIN ORDERED. SEE EMAR FOR DETAILS WILL REASSESS PAIN LEVEL IN 30 MINUTES
[2019-05-19] MEDS: diphenhdrAMINE HCL 50 MG/1 ML VL IV PRN ×2 (04:29→10:14)
--- NOTE | 2019-05-19 04:49 | NUR ---
PAIN REASSESSMENT PATIENT STATES PAIN IS NOW 2/10. PATIENT STATES SHE IS COMFORTABLE
[2019-05-19 05:00] VITALS: BP 111/45
[2019-05-19] MEDS: GABAPENTIN 300 MG CAP PO SCH ×2 (05:48→14:00)
[2019-05-19] MEDS: IPRATROPIUM BROM 0.5 MG/2.5ML INH SOL NEB SCH ×2 (05:52→11:17)
[2019-05-19] MEDS: BUDESONIDE (INHALATION) 0.5 MG/2 ML NEB NEB SCH (05:52)
[2019-05-19] MEDS: ALBUTEROL SULF 2.5 MG/0.5ML(0.5%) NEB SOLN NEB SCH ×2 (05:52→11:18)
[2019-05-19 06:25] LABS: Basophils # (auto) 0.1 10 ^3/uL (0-0.2); Basophils % (auto) 1.1 % (0.0-2.0); Eosinophils # (auto) 0.2 10 ^3/uL (0-0.8); Eosinophils % (auto) 3.1 % (0.0-7.0); Hemoglobin 8.3 g/dL (12.2-16.2); Lymphocytes # (auto) 1.2 10 ^3/uL (0.4-5.4); Mean Corpuscular Hemoglobin 22.3 pg (28.0-32.0); Mean Corpuscular Hgb Conc. 31.2 g/dL (32.0-36.0); Monocytes # (auto) 0.8 10 ^3/uL (0-1.3)
[2019-05-19 06:28] LABS: Hematocrit 26.6 % (36.0-46.0); Lymphocytes % (auto) 18.7 % (10.0-50.0); Mean Corpuscular Volume 71.5 fL (80.0-100.0); Monocytes % (auto) 11.6 % (0.0-12.0); Neutrophils # (auto) 4.3 10 ^3/uL (1.6-8.6); Neutrophils % (auto) 65.5 % (37.0-80.0); Platelet Count (auto) 239 10^3/uL (140-450); Red Blood Cells 3.72 10^6/uL (4.0-5.20); Red Cell Distribution Width 18.2 % (11.8-14.3); White Blood Cell 6.5 10^3/uL (4.4-10.8)
--- NOTE | 2019-05-19 07:12 | NUR ---
CLOSING PATIENT RESTING COMFORTABLY IN BED. NO S/S OF DISTRESS. CALL LIGHT WITHIN REACH REPORT GIVEN TO DAYSVALENTINA RN
[2019-05-19] MEDS: SIMETHICONE 80 MG CHEWABLE TABLET PO PRN (08:37)
[2019-05-19] MEDS: cefTRIAXone 1GM/50ML D5W 50 ML IV SCH (08:37)
[2019-05-19 08:53] VITALS: BP 100/66
--- NOTE | 2019-05-19 10:00 | NUR ---
PHYSICAL THERAPIST WORKING WITH PATIENT
--- NOTE | 2019-05-19 10:05 | NUR ---
PATIENT SITTING UP IN CHAIR
--- NOTE | 2019-05-19 10:10 | NUR ---
DR PICKARD AT BED SIDE DISCUSSING POC WITH PATIENT. PATIENT VERBALIZES UNDERSTANDING.
[2019-05-19] MEDS ORDERED: CEPH-37 PO (10:24)
[2019-05-19] MEDS ORDERED: IPR002IS NEB (10:25)
[2019-05-19] MEDS ORDERED: ALB5IS NEB (10:25)
--- NOTE | 2019-05-19 10:30 | NUR ---
CALL FROM NIKOS AND DAUGHTER BREANN INQUIRING AN UPDATE ON POC. PASSWORD CORRECT AND UPDATE GIVEN. ALL QUESTIONS ANSWERED AT THIS TIME.
[2019-05-19] MEDS ORDERED: POLY33504 PO (10:42)
[2019-05-19 13:00] VITALS: BP 100/64
[2019-05-19 13:38] VITALS: BP 110/62
--- NOTE | 2019-05-19 14:40 | NUR ---
[facility]SA SWAB COLLECTED AND SENT
[2019-05-19 14:43] VITALS: BP 100/66
--- NOTE | 2019-05-19 15:04 | NUR ---
Discharge instructions given as ordered. Encourage to follow up with PMD as instructed. All questions and concerns addressed. Patient verbalized understanding. Medication reconciliation form completed and copy given to patient. IV removed with catheter intact, pressure dressing applied, vasquez catheter removed. Telemetry unit returned to ICU. Patient taken to vehicle via wheelchair with all personal belongings, accompanied by staff and family member. No distress noted at time of departure.
== END 2019-05-19 15:20 | disposition home health service (06) | DRG 871 ==
LOC: EDBD 12:45 → ER 12:45 → TELE 12:46 → ICU WEST 17:08 → TELE-CENTR 05-15 12:00
PROVIDERS: ADMIT Nurse Practitioner Acute Care; ATTEND Internal Medicine
PROC: 5A1935Z Respiratory Ventilation, Less than 24 Consecutive Hours (ICD-10-PCS; principal; 2019-05-13)
PROC: 0BH17EZ Insertion of Endotracheal Airway into Trachea, Via Natural or Artificial Opening (ICD-10-PCS; 2019-05-13)
PROC: 0JH63XZ Insertion of Tunneled Vascular Access Device into Chest Subcutaneous Tissue and Fascia, Percutaneous Approach (ICD-10-PCS; 2019-05-13)
PROC: 02H633Z Insertion of Infusion Device into Right Atrium, Percutaneous Approach (ICD-10-PCS; 2019-05-13)
DX: A41.9 Sepsis, unspecified organism (principal); G93.41 Metabolic encephalopathy; R65.21 Severe sepsis with septic shock; J96.00 Acute respiratory failure, unspecified whether with hypoxia or hypercapnia; E43 Unspecified severe protein-calorie malnutrition; J15.5 Pneumonia due to Escherichia coli; Z68.1 Body mass index [BMI] 19.9 or less, adult; N39.0 Urinary tract infection, site not specified; E87.6 Hypokalemia; D50.9 Iron deficiency anemia, unspecified; G89.29 Other chronic pain; K56.41 Fecal impaction; F41.9 Anxiety disorder, unspecified; Z88.3 Allergy status to other anti-infective agents; Z88.8 Allergy status to other drugs, medicaments and biological substances
CPT/HCPCS: 31500; 36415; 36556; 36600; 70450; 71045; 74176; 80048; 80053; 80202; 81001; 82140; 82805; 83605; 83735; 83880; 84484; 85007; 85025; 85027; 85610; 85730; 87040; 87070; 87077; 87081; 87086; 87088; 87186; 87205; 87804; 94002; 94003; 94640; 96374; 96375; 97116; 97163; 97530; 99291; G0378; J0330; J0696; J2185; J2250; J2405; J3490; Q0164

== ENCOUNTER 2019-05-29 12:54 | Inpatient (IN) | payer MEDICARE, MEDICAID ==
[~2019-05-29] VITALS: Ht 162.6 cm; Wt 54.7 kg
[2019-05-29] VITALS (10 sets, daily range): BP systolic 83–120; BP diastolic 46–85
[~2019-05-29 12:54] MED LIST changes: +ALB5IS NEB; -CARI-277 OR; +CEPH-37 PO; +DIAZ10TA3 PO; +FENT25DI TD; +GABA300C10 PO; +HYDR-4072 PO; -HYDR4TAB90 PO; +IPR002IS NEB; -PHENERGAN PO; +POLY335015 PO; +POLY33504 PO; +PRO10T PO; +TEMA30CA PO; -TRAZ50TA2 PO
[2019-05-29] MEDS ORDERED: SODIUM CHLORIDE 0.9% 1,000 ML IV ONE ×2 (13:01)
[2019-05-29] MEDS ORDERED: ACETAMINOPHEN 325 MG TAB PO ONE ×2 (13:20→13:30)
[2019-05-29] MEDS ORDERED: methylPREDNISolone SOD SUCC 125 MG/2 ML VL IV ONE (13:30)
[2019-05-29] MEDS ORDERED: AZITHROMYCIN 500MG/ 250ML 250 ML IV ONE ×2 (13:30→15:30)
[2019-05-29] MEDS ORDERED: ALBUTEROL SULF 2.5 MG/0.5ML(0.5%) NEB SOLN NEB ONE (13:30)
[2019-05-29] MEDS ORDERED: ATROPINE SULF 1 MG/10ml SYR IV ONE (13:30)
[2019-05-29] MEDS ORDERED: cefTRIAXone 1GM/50ML D5W 50 ML IV ONE (13:30)
[2019-05-29 14:33] LABS: Urine Bacteria NONE SEEN /hpf (None Seen); Urine Blood Negative /uL (Negative); Urine Budding Yeast OCCASIONAL /hpf (None Seen); Urine Hyaline Cast FEW /lpf (0 - 2); Urine Mucus FEW (None Seen); Urine Specific Gravity 1.014 (1.001-1.035); Urine WBC 26 /hpf (0 - 5)
[2019-05-29] MEDS ORDERED: NITROGLYCERIN 0.4 MG SL TAB SL PRN (15:30)
[2019-05-29] MEDS ORDERED: ALBUTEROL SULF 2.5 MG/0.5ML(0.5%) NEB SOLN NEB PRN ×2 (15:30→22:30)
[2019-05-29] MEDS ORDERED: traMADol HCL 50 MG TAB PO PRN (15:30)
[2019-05-29] MEDS ORDERED: GENTAMICIN PER PHARMACY 0 ML IV SCH (15:30)
[2019-05-29] MEDS ORDERED: MORPHINE SULF INJ 2 MG/ML SYRINGE 1ML IV PRN (15:30)
[2019-05-29 17:26] LABS: Albumin 2.9 g/dL (3.4-5.0); Anion Gap 11 (5-15); Blood Urea Nitrogen 8 mg/dL (7-18); Calcium 8.2 mg/dL (8.5-10.1); Carbon Dioxide 22 mmol/L (21-32); Chloride 107 mmol/L (98-107); Glucose 121 mg/dL (74-106); Potassium 3.6 mmol/L (3.5-5.1); Sodium 140 mmol/L (136-145)
[2019-05-29 17:30] LABS: Alanine Aminotransferase 15 U/L (13-56); Alkaline Phosphatase 129 U/L (45-117); Aspartate Aminotransferase 36 U/L (15-37); BUN/Creatinine Ratio 10.4; Bilirubin, Total 0.3 mg/dL (0.2-1.0); GFR African American 97 mL/min; GFR Non-African American 80 mL/min; Total Protein 6.5 g/dL (6.4-8.2)
[2019-05-29] MEDS: GENTAMICIN SULFATE 400 MG in D5W 5% 100 ML IV SCH (17:46)
[2019-05-29 17:58] LABS: Mean Corpuscular Hemoglobin 20.9 pg (28.0-32.0)
[2019-05-29 18:00] LABS: Hematocrit 29.7 % (36.0-46.0); Hemoglobin 8.7 g/dL (12.2-16.2); Mean Corpuscular Hgb Conc. 29.1 g/dL (32.0-36.0); Mean Corpuscular Volume 71.9 fL (80.0-100.0); Platelet Count (auto) 254 10^3/uL (140-450); Red Blood Cells 4.14 10^6/uL (4.0-5.20); Red Cell Distribution Width 17.7 % (11.8-14.3); White Blood Cell 18.9 10^3/uL (4.4-10.8)
[2019-05-29] MEDS ORDERED: IPRATROPIUM BROM 0.5 MG/2.5ML INH SOL NEB SCH ×2 (18:00→22:00)
[2019-05-29] MEDS ORDERED: ALBUTEROL SULF 2.5 MG/0.5ML(0.5%) NEB SOLN NEB SCH ×2 (18:00→22:00)
[2019-05-29 18:03] LABS: Basophils % (manual) 0 (0.0-2.0); Blast Cells 0; Eosinophils % (manual) 0 (0-7); Metamyelocytes % 0; Myelocytes % 0; Promyelocytes % 0; Reactive Lymphocytes 0
[2019-05-29 18:09] LABS: INR 1.14 (0.9-1.15); Partial Thromboplastin Time 24.8 sec (23.64-32.05)
[2019-05-29 18:18] LABS: Band Neutrophils % (manual) 1; Lymphocytes % (manual) 1 (10.0-50.0); Monocytes % (manual) 1 (0-12)
--- NOTE | 2019-05-29 20:00 | NUR ---
RECEIVED REPORT FROM REBECCA PEREZ
[2019-05-29] MEDS: MORPHINE SULF INJ 2 MG/ML SYRINGE 1ML IV PRN (20:05)
[2019-05-29] MEDS: ONDANSETRON HCL 4 MG/2 ML VIAL IV PRN (20:06)
[2019-05-29] MEDS: LINEZOLID 600MG/300ML 300 ML IV SCH (20:45)
--- NOTE | 2019-05-29 20:45 | NUR ---
RECEIVED PATIENT FROM ED
--- NOTE | 2019-05-29 21:00 | NUR ---
REMOVED FENTANYL PATCH FROM LEFT UPPER ARM/SHOULDER
--- NOTE | 2019-05-29 21:10 | NUR ---
BP 85/46 MAP 60 - BP IN THE 80s FOR LAST COUPLE OF CYCLES - VERY LETHARGIC - PAGED MOLASSES COLORING OPERATOR HOSPITALIST
--- NOTE | 2019-05-29 21:15 | NUR ---
ADMISSION NOTE: RECEIVED PATIENT FROM ER. LETHARGIC. ABLE TO STATE NAME AND THEN FELL ASLEEP. UNABLE TO MAINTAIN EYE CONTACT. SINUS NOVA, HR 50s. BP 80-90s. LS CTA, DIMINISHED TO BASES. EVEN AND UNLABORED BREATHING. RR > 12. SpO2>95% ON 2L O2 VIA NC. ABD SOFT. HYPOACTIVE BS. UNKNOWN LBM. NOTED WITH MULTIPLE SCARS ACROSS ABDOMEN. WILCOX PATENT AND INTACT DRAINING LIGHT EKMAL, YELLOW URINE. RIGHT CHEST PORT-A-CATH ACCESSED, CDI, AND PATENT WITH BLOOD RETURN. LEFT UPPER ARM MIDLINE, CDI, FLUSHES EASILY BUT WITH SLUGGISH BLOOD RETURN. NO PAIN BEHAVIORS IDENTIFIED. NO NAUSEA BEHAVIORS IDENTIFIED. REINFORCED POC. MAINTAINED PATIENT SAFETY: BED LOCKED AND IN THE LOWEST POSITION, FREQUENT VISUAL CHECKS, BED ALARM ON. NO FAMILY PRESENT AT THIS TIME. WILL CONT CARE
[2019-05-29] MEDS ORDERED: ALBUMIN 5% 250 ML IV ONE (21:30)
--- NOTE | 2019-05-29 21:30 | NUR ---
BP REMAINS IN THE 80s -250 5% ALBUMIN STARTED
--- NOTE | 2019-05-29 22:00 | NUR ---
SPOKE WITH PATIENT'S DAUGHTER: PASSWORD ESTABLISHED. DAUGHTER TO LOOK FOR, AND BRING [facility] [facility] DIRECTIVE
--- NOTE | 2019-05-29 22:18 | NUR ---
NOTIFIED GIANNA VIVAS OF BLOOD PRESSURE AND LETHARGY: ORDERS FOR 0.2MG NARCAN. ORDERS READBACK AND VERIFIED
[2019-05-29] MEDS ORDERED: NALOXONE HCL 0.4 MG/ML VIAL ONE (22:21)
[2019-05-29] MEDS ORDERED: NALOXONE HCL 0.4 MG/ML VIAL IV ONE (22:30)
[2019-05-30] VITALS (44 sets, daily range): BP systolic 75–148; BP diastolic 23–72
--- NOTE | 2019-05-30 02:00 | NUR ---
DOWNTIME FROM [id number], SEE CHART FOR PAPER DOCUMENTATION
--- NOTE | 2019-05-30 02:15 | NUR ---
PATIENT REQUESTING PAIN MEDICATION - BP IN 80s: EXPLAINED LOW BP PREVENTS PAIN MEDICATION FROM BEING GIVEN. HYDRATOR ALSO EXPLAINED THAT NARCAN HAD TO BE ADMINISTERED D/T LETHARGY. PATIENT STOPPED ASKING FOR PAIN MEDICATION. WILL PAGE STUDENT ACCOUNTS MANAGER HOSPITALIST REGARDING BP.
--- NOTE | 2019-05-30 02:29 | NUR ---
PAGED PRIMER EXPEDITOR AND DRIER HOSPITALIST REGARDING BP
--- NOTE | 2019-05-30 02:33 | NUR ---
NOTIFIED GIANNA VIVAS OF BP: ORDERS FOR LEVOPHED GTT. ORDERS READBACK AND VERIFIED
[2019-05-30] MEDS ORDERED: NOREPINEPHRINE 8 MG/250ML KIT 250 ML IV SCH (02:34)
--- NOTE | 2019-05-30 02:45 | NUR ---
BP REMAINS IN 80s - STARTED LEVO AT 2MCG/MIN
[2019-05-30] MEDS: MORPHINE SULF INJ 2 MG/ML SYRINGE 1ML IV PRN ×3 (03:05→11:01)
--- NOTE | 2019-05-30 03:05 | NUR ---
REPORTS GENERALIZED AND ABDOMINAL PAIN - STATES SHE BREAKS OUT IN HIVES WITH TRAMADOL BUT TOLERATES MORPHINE WITHOUT REACTION, MORPHINE 1 MG PRN GIVEN
--- NOTE | 2019-05-30 04:00 | NUR ---
PAIN REASSESSMENT: PATIENT SLEEPING. NO PAIN BEHAVIORS IDENTIFIED
[2019-05-30 04:16] LABS: Basophils # (auto) 0.1 10 ^3/uL (0-0.2); Basophils % (auto) 0.3 % (0.0-2.0); Eosinophils # (auto) 0 10 ^3/uL (0-0.8); Hematocrit 25.4 % (36.0-46.0); Hemoglobin 7.7 g/dL (12.2-16.2); Lymphocytes % (auto) 5.5 % (10.0-50.0); Mean Corpuscular Hemoglobin 21.8 pg (28.0-32.0); Mean Corpuscular Hgb Conc. 30.3 g/dL (32.0-36.0); Mean Corpuscular Volume 71.9 fL (80.0-100.0); Monocytes # (auto) 0.2 10 ^3/uL (0-1.3); Monocytes % (auto) 1.3 % (0.0-12.0); Neutrophils # (auto) 16.4 10 ^3/uL (1.6-8.6); Neutrophils % (auto) 92.9 % (37.0-80.0); Platelet Count (auto) 180 10^3/uL (140-450); Red Blood Cells 3.54 10^6/uL (4.0-5.20); Red Cell Distribution Width 17.7 % (11.8-14.3); White Blood Cell 17.7 10^3/uL (4.4-10.8)
[2019-05-30 04:28] LABS: Calcium 7.4 mg/dL (8.5-10.1); Potassium 3.9 mmol/L (3.5-5.1)
[2019-05-30 04:30] LABS: BUN/Creatinine Ratio 10.5
--- NOTE | 2019-05-30 06:43 | NUR ---
SMALL PASTY BM X1
[2019-05-30] MEDS: ONDANSETRON HCL 4 MG/2 ML VIAL IV PRN (06:55)
--- NOTE | 2019-05-30 07:01 | NUR ---
REPORTS 8-12/12 ABDOMINAL PAIN AND NAUSEA - MORPHINE PRN AND ZOFRAN GIVEN - REQUESTING TO SEE DR. LAY (PAIN MANAGEMENT) WHILE INPATIENT, WILL ENDORSE TO DAY SHIFT
--- NOTE | 2019-05-30 07:20 | NUR ---
PAIN REASSESSMENT: SLEEPING. NO PAIN BEHAVIORS IDENTIFIED. WILL ENDORSE CARE TO DAY SHIFT
--- NOTE | 2019-05-30 07:21 | NUR ---
REPORT AND CARE ENDORSED TO REBECCA PEREZ
--- NOTE | 2019-05-30 07:21 | NUR ---
REPORT RECEIVED FROM CREDIT MANAGER RN
[2019-05-30] MEDS: LINEZOLID 600MG/300ML 300 ML IV SCH (07:40)
--- NOTE | 2019-05-30 08:15 | NUR ---
BREAKFAST PATIENT ONLY WANTED MILK AND ORANGE JUICE AT THIS TIME.
[2019-05-30] MEDS: ACETAMINOPHEN 500 MG TAB PO PRN (09:10)
--- NOTE | 2019-05-30 09:25 | NUR ---
DR. YATES PAGED AWAITING CALLBACK
[2019-05-30] MEDS: ENOXAPARIN SOD 40 MG/0.4 ML SYRINGE SC SCH (09:46)
[2019-05-30] MEDS ORDERED: AZITHROMYCIN 500MG/ 250ML 250 ML IV SCH (10:00)
--- NOTE | 2019-05-30 10:16 | NUR ---
FAMILY CONTACT PATIENT SPOKE WITH OVER PORTABLE TELEPHONE
--- NOTE | 2019-05-30 11:18 | NUR ---
PAIN DR. PATEL NOTIFIED OF UNRELIEVED PAIN AFTER MEDICATION ADMINISTRATION. ORDERS RECEIVED
[2019-05-30] MEDS ORDERED: HYDROcodone-ACET 5/325MG TAB PO PRN (11:30)
--- NOTE | 2019-05-30 11:50 | NUR ---
FAMILY DAUGHTER GORDO UPDATED ON PATIENT STATUS. ALL QUESTIONS AND CONCERNS ADDRESSED AT THIS TIME
--- NOTE | 2019-05-30 12:00 | NUR ---
WOUND CARE NOTE: WOUND CARE TEAM IN TO SEE PATIENT AT THIS TIME PER WOUND CARE REQUEST FOR LOW DEIDRE SCORE. PATIENT HAS DEIDRE SCORE OF 13. PATIENT IN NEGATIVE PRESSURE ROOM FOR DROPLET AND CONTACT ISOLATION. BEDSIDE NURSE ADVISES PATIENT IS WOUND FREE. SKIN/WOUND CARE PLAN IMPLEMENTED. RECOMMEND: BID/PRN BARRIER CREAM TO POTENTIALLY AFFECTED AREAS. FREQUENT TURN SCHEDULED [id number] CONDITION PERMITS. SKIN/WOUND CARE PLAN. CONTINUED MONITORING BY WOUND CARE TEAM.
[2019-05-30] MEDS: fentaNYL 50MCG/HR 50 MCG/HR PAT TD SCH (12:06)
--- NOTE | 2019-05-30 13:38 | NUR ---
Respiratory note: PT GIVEN MEDEB TX VIA MASK/HEPA FILTERS ATTACHED TO HHN, WITH NO ADVERSE EFFECTS NOTED. PT TOLERATED TX WELL. SPO2 98% ON RA, HR 66, RR 19, BS CLEAR/DIMINISHED BILATERALLY. WILL CONTINUE TO MONITOR PT.
[2019-05-30] MEDS: IPRATROPIUM BROM 0.5 MG/2.5ML INH SOL NEB SCH ×2 (13:54→22:28)
--- NOTE | 2019-05-30 13:56 | NUR ---
DR. PATEL AT BEDSIDE
[2019-05-30] MEDS ORDERED: POLYETHYLENE GLYCOL 17 GM PWDR PO ONE (14:00)
[2019-05-30] MEDS ORDERED: POLYETHYLENE GLYCOL 17 GM PWDR PO PRN (14:00)
[2019-05-30] MEDS ORDERED: SODIUM CHLORIDE 0.9% 1,000 ML IV SCH (14:00)
--- NOTE | 2019-05-30 14:16 | NUR ---
NUTRITION ASSESSMENT NOTES Please refer to link notes of nutrition screen form filed under the intervention section of the plan of care for further details. Est. Energy Needs: 0346-6655 kcal (25-30 kcal/kg BW). Est. Protein Needs: 56-62 gms/day (1.0-1.1 gms/kg BW). Will continue to monitor pertinent labs and reassess nutrient need prn Addendum: 05/30/19 at [address] Amended: Links added.
[2019-05-30] MEDS: HYDROcodone-ACET 10/325MG TAB PO PRN ×2 (15:06→21:28)
[2019-05-30] MEDS: GABAPENTIN 300 MG CAP PO SCH ×2 (15:06→21:28)
--- NOTE | 2019-05-30 15:26 | NUR ---
PARTIAL LINEN CHANGE PERFORMED AT THIS TIME
--- NOTE | 2019-05-30 16:00 | NUR ---
COMFORT PATIENT REPOSITIONED REPORTS MILD RELIEF FROM ABDOMINAL PAIN
--- NOTE | 2019-05-30 16:51 | NUR ---
HEAT PACKS GIVEN TO PATIENT PER REQUEST.
--- NOTE | 2019-05-30 17:29 | NUR ---
CORONAVIRUS NEGATIVE REPORT PLACED IN FRONT OF CHART
--- NOTE | 2019-05-30 17:40 | NUR ---
REPORT GIVEN TO PEMA FERNANDEZ TO ASSUME CARE
--- NOTE | 2019-05-30 18:05 | NUR ---
GENTAMYCIN UNABLE TO ADMINISTER GENTAMYCIN AT THIS TIME DUE TO THE FACT MEDICATION NOT AVAILABLE. PER PHARMACY THEY WILL SEND UP TO CENTRAL UNIT
--- NOTE | 2019-05-30 18:15 | NUR ---
PATIENT TRANSFERRED TO ROOM 206 VIA ACLS GUIDELINES. DAUGHTER GORDO MADE AWARE OF TRANSFER
--- NOTE | 2019-05-30 18:30 | NUR ---
PATIENT UP TO TELE FLOOR IN ROOM 206. SHE IS ALERT AND ORIENTED X 4. NO SIGNS OF DISTRESS, PAIN OR SOB AT THIS TIME. PATIENT IS TELE BOX #25 WITH A FIB. ASSESSMENT DONE.
--- NOTE | 2019-05-30 19:30 | NUR ---
Opening Shift Note Assumed care of patient, awake and alert. No S/S of distress/SOB or pain. Safety measures in place bed in lowest position, side rails up x2, and call light within reach. Instructed on POC and to call for assist PRN, will continue to monitor for changes Q1hr and PRN.
[2019-05-30] MEDS: GENTAMICIN SULFATE 400 MG in D5W 5% 100 ML IV SCH (19:44)
--- NOTE | 2019-05-30 21:28 | NUR ---
Pain Patient complaining of abdominal and back pain 12/12. Administered pain medication. Will reassess in one hour. Will continue to monitor every hour and as needed. Signed: 05/30/19 at 2355 by MAGED HOFFMAN RN RN Addendum: 05/31/19 at 0003 by MAGED HOFFMAN RN RN Patient states pain is 8/10. Signed: 05/31/19 at 0003 by MAGED HOFFMAN RN RN
[2019-05-30] MEDS: ALBUTEROL SULF 2.5 MG/0.5ML(0.5%) NEB SOLN NEB SCH ×2 (22:00→22:28)
[2019-05-30] MEDS ORDERED: LINEZOLID 600MG/300ML 300 ML IV SCH (22:00)
--- NOTE | 2019-05-30 22:28 | NUR ---
Pain Reassessment Pain reassessed patient states pain is 0/10. Patient is lying in bed watching television. Will continue to monitor every hour and as needed.
[2019-05-30] MEDS: TEMAZEPAM 15 MG CAP PO PRN (22:43)
[2019-05-31 04:52] VITALS: BP 116/62
[2019-05-31] MEDS: HYDROcodone-ACET 10/325MG TAB PO PRN ×3 (05:22→18:30)
[2019-05-31] MEDS: GABAPENTIN 300 MG CAP PO SCH ×3 (06:33→22:18)
[2019-05-31] MEDS: IPRATROPIUM BROM 0.5 MG/2.5ML INH SOL NEB SCH ×3 (06:49→22:11)
[2019-05-31] MEDS: ALBUTEROL SULF 2.5 MG/0.5ML(0.5%) NEB SOLN NEB SCH ×3 (06:51→22:11)
--- NOTE | 2019-05-31 07:35 | NUR ---
Opening Shift Note Assumed care of patient, awake and alert. No S/S of distress/SOB or pain. For safety, patients bed is locked, in the lowest position with 2 side rails up and the call light with in reach. Instructed on POC and to call for assist PRN, will continue to monitor for changes in condition.
[2019-05-31 09:00] VITALS: BP 179/70
[2019-05-31 09:47] LABS: Basophils # (auto) 0 10 ^3/uL (0-0.2); Eosinophils # (auto) 0.1 10 ^3/uL (0-0.8); Hematocrit 23.7 % (36.0-46.0); Monocytes # (auto) 0.4 10 ^3/uL (0-1.3); Neutrophils # (auto) 5.2 10 ^3/uL (1.6-8.6); Nucleated Red Blood Cells % 0.1 %
[2019-05-31 09:48] LABS: Basophils % (auto) 0.4 % (0.0-2.0); Eosinophils % (auto) 1.7 % (0.0-7.0); Hemoglobin 7.2 g/dL (12.2-16.2); Lymphocytes # (auto) 1.6 10 ^3/uL (0.4-5.4); Lymphocytes % (auto) 21.5 % (10.0-50.0); Mean Corpuscular Hemoglobin 22.1 pg (28.0-32.0); Mean Corpuscular Hgb Conc. 30.3 g/dL (32.0-36.0); Mean Corpuscular Volume 72.8 fL (80.0-100.0); Monocytes % (auto) 5.3 % (0.0-12.0); Neutrophils % (auto) 71.1 % (37.0-80.0); Platelet Count (auto) 201 10^3/uL (140-450); Red Blood Cells 3.25 10^6/uL (4.0-5.20); White Blood Cell 7.3 10^3/uL (4.4-10.8)
[2019-05-31 10:04] LABS: BUN/Creatinine Ratio 9.5; Calcium 7.8 mg/dL (8.5-10.1); Potassium 3.5 mmol/L (3.5-5.1)
[2019-05-31] MEDS ORDERED: PANTOPRAZOLE 40 MG TAB PO ONE (10:15)
[2019-05-31] MEDS ORDERED: cloNIDine HCL 0.1 MG TAB PO PRN (10:15)
[2019-05-31] MEDS: ENOXAPARIN SOD 40 MG/0.4 ML SYRINGE SC SCH (10:18)
[2019-05-31] MEDS: diazePAM 5 MG TAB PO PRN (10:26)
[2019-05-31] MEDS ORDERED: FLUCONAZOLE 200MG/100ML 100 ML IV ONE (10:45)
[2019-05-31] MEDS ORDERED: AZITHROMYCIN 500MG/ 250ML 250 ML IV SCH (12:00)
[2019-05-31 13:08] VITALS: BP 118/58
--- NOTE | 2019-05-31 14:45 | NUR ---
Attempted PT eval. Pt reported she was nauseous and requested to attempt later.
[2019-05-31 16:30] VITALS: BP 157/120
[2019-05-31 16:54] VITALS: BP 140/86
[2019-05-31] MEDS: GENTAMICIN SULFATE 400 MG in D5W 5% 100 ML IV SCH (18:30)
--- NOTE | 2019-05-31 19:30 | NUR ---
Opening Shift Note Assumed care of patient, awake and alert. No S/S of distress/SOB or pain. Safety measures in place bed in lowest position, side rails x2 up, and call light within reach. Instructed on POC and to call for assist PRN, will continue to monitor for changes Q1hr and PRN.
[2019-05-31 22:00] VITALS: BP 122/81
[2019-06-01] VITALS (7 sets, daily range): BP systolic 122–146; BP diastolic 80–90
[2019-06-01] MEDS: HYDROcodone-ACET 10/325MG TAB PO PRN ×4 (00:57→23:25)
[2019-06-01] MEDS: diazePAM 5 MG TAB PO PRN (04:16)
[2019-06-01] MEDS: GABAPENTIN 300 MG CAP PO SCH ×3 (05:54→21:52)
[2019-06-01] MEDS: IPRATROPIUM BROM 0.5 MG/2.5ML INH SOL NEB SCH ×3 (07:14→22:06)
[2019-06-01] MEDS: ALBUTEROL SULF 2.5 MG/0.5ML(0.5%) NEB SOLN NEB SCH ×3 (07:15→22:06)
[2019-06-01] MEDS: ENOXAPARIN SOD 40 MG/0.4 ML SYRINGE SC SCH (09:06)
[2019-06-01] MEDS: PANTOPRAZOLE 40 MG TAB PO SCH (09:06)
[2019-06-01] MEDS: FLUCONAZOLE 200MG/100ML 100 ML IV SCH (09:06)
--- NOTE | 2019-06-01 11:00 | NUR ---
Dr. Lamas at bedside to discuss plan of care with patient.
--- NOTE | 2019-06-01 14:00 | NUR ---
Patients port a cath to the right upper chest was accessed in ICU before she came to the floor. The port does not give blood return so the Helms needle was changed with Bryn FERNANDEZ. No blood return with new insertion. Received order from Dr. Lamas to do a heparin dwell to see if port will function. Dwell placed.
--- NOTE | 2019-06-01 17:30 | NUR ---
Spoke with patients daughter Jennifer and gave an update. She stated that her mom has chronic anemia ever since she had a partial gastrectomy. She states she has been assessed for multiple times for a gastrointestinal bleed and all with negative findings.
[2019-06-01] MEDS: GENTAMICIN SULFATE 400 MG in D5W 5% 100 ML IV SCH (18:48)
--- NOTE | 2019-06-01 21:15 | NUR ---
Patient complaining about NPO status. Patient states "I am always anemic due to my history of gastric surgeries" then stated "I am not going to have any type of scoping or procedure tomorrow I do not need it; I am not bleeding". Will notify physician of patient's wishes.
[2019-06-01] MEDS: SIMETHICONE 80 MG CHEWABLE TABLET PO PRN (21:52)
--- NOTE | 2019-06-01 21:57 | NUR ---
Patient's daughter Kayley called. Verified password. Kayley is concerned about NPO status for her mother. Family states "My mother has had an extensive history of gastric bypass surgery and has an absorption problem which makes her chronically anemic". Daughter reinforced that her mother does not want any type of gastric procedure, or scoping. Patient verbalized refusal. Will notify hospitalist.
--- NOTE | 2019-06-01 23:06 | NUR ---
Patient is AOx4. Notified Dr. Hyman that the patient is refusing NPO status. Patient had daughter call and reinforce that her mother is refusing NPO status, and will not undergo any GI consults or procedures. Reverting patient's diet order, will continue to monitor.
[2019-06-02] VITALS (9 sets, daily range): BP systolic 111–139; BP diastolic 69–99
--- NOTE | 2019-06-02 00:57 | NUR ---
Patient complains of pain Patient states pain level 10. Medicated per MD order. Will continue to monitor Q1 and PRN. Addendum: 06/03/19 at 0209 by Beata Mcwilliams RN TIME 005 DATE 06/03/19
--- NOTE | 2019-06-02 01:36 | NUR ---
Starting to infuse 1 unit blood at 0112, patient tolerating procedure well, infusing well. 0127 midline leaking. Stopped infusion. Gathered supplies to begin new IV access, patient refusing IV in hands, patient has Port A Cath, paged hospitalist requesting to use port a cath for infusion. Orders received. Patient tolerating well. Will continue to monitor.
--- NOTE | 2019-06-02 01:45 | NUR ---
Midline discontinued patient tolerated procedure well. Will continue to monitor.
[2019-06-02] MEDS: diazePAM 5 MG TAB PO PRN ×2 (03:14→21:00)
[2019-06-02] MEDS: ACETAMINOPHEN 500 MG TAB PO PRN ×2 (04:06→13:18)
--- NOTE | 2019-06-02 04:14 | NUR ---
Notified physician of patient's elevated temperature of 103. Patient's temperature status post blood transfusion 98.6. Tylenol administered and cooling measures implemented. Orders received. Will continue to monitor.
[2019-06-02] MEDS: SODIUM CHLORIDE 0.9% 1,000 ML IV SCH ×3 (04:30→17:50)
[2019-06-02] MEDS: GABAPENTIN 300 MG CAP PO SCH ×3 (06:00→21:10)
[2019-06-02] MEDS: IPRATROPIUM BROM 0.5 MG/2.5ML INH SOL NEB SCH ×3 (07:19→23:01)
[2019-06-02] MEDS: ALBUTEROL SULF 2.5 MG/0.5ML(0.5%) NEB SOLN NEB SCH ×3 (07:19→23:01)
--- NOTE | 2019-06-02 07:55 | NUR ---
Opening Note Assumed pt care from NOC nurse/ Pt is a/ox4 with no s/s of distress or SOB. Pt is currently laying in bed with no complaints at this time. Kwan is present, free of kinks and draining to gravity. Discussed POC with pt; pt verbalized understanding. Safety measures maintained with call light within reach, bed in lowest position and side rails up. Will continue to monitor.
[2019-06-02] MEDS: FLUCONAZOLE 200MG/100ML 100 ML IV SCH (09:24)
[2019-06-02] MEDS: ENOXAPARIN SOD 40 MG/0.4 ML SYRINGE SC SCH (09:24)
[2019-06-02] MEDS: PANTOPRAZOLE 40 MG TAB PO SCH (10:02)
[2019-06-02] MEDS: HYDROcodone-ACET 10/325MG TAB PO PRN ×2 (10:02→18:19)
[2019-06-02] MEDS: fentaNYL 50MCG/HR 50 MCG/HR PAT TD SCH (11:12)
--- NOTE | 2019-06-02 11:51 | NUR ---
Dr Marley at Bedside MD to see pt. No new orders at this time. Will continue to monitor.
[2019-06-02] MEDS: SIMETHICONE 80 MG CHEWABLE TABLET PO PRN (13:07)
--- NOTE | 2019-06-02 15:15 | NUR ---
NUTRITION ASSESSMENT NOTES Pt wt is 56.7 kg today Pt diet is updated to oral 2gNa on 06/01/19, but no report yet on pt percent PO intake, and pt was sleeping when rounded this morning so could not obtain pt self report of PO intake. Pt in no noted distress per RN doc. Will continue to monitor and followup prn. Est. Energy Needs: 1940-7722 kcal (25-30 kcal/kg BW). Est. Protein Needs: 56-62 gms/day (1.0-1.1 gms/kg BW). Will continue to monitor pertinent labs and reassess nutrient need prn LABS: Cl 111 H, BUN 6 L, Gluc 132 H, alb 2.9 L, Ca 7.8 L GI: Last BM noted on 06/01/19 per RN doc. BS: 18 moderate risk. Please refer to wound assessment report for full details. PES: Problem 1) Altered nutrition related lab values r/t current medical condition aeb hyperglycemia, hypocalcemia, hypoalbuminemia Comments Will continue to monitor PO intake, pertinent labs, skin status and weight trends. F/u in 3 to 5 days. Additional Recommendation: 1) Encourage pt to meet fluid requirements 2) Consider to continue monitoring pertinent labs. If Albumin continues trending down, consider Prostat 1 pkt BID. 3) Continue close supervision and feeding assistance prn during meals. 4) Continue current plan of care.
--- NOTE | 2019-06-02 15:50 | NUR ---
Respiratory note: UNABLE TO ADMINISTER SCHEDULED MED NEB TX DUE TO THERAPIST BEING UNAVAILABLE. THERAPIST PAGED TO L & D AND WAS ATTENDING TO EMERGENT SITUATION IN [place]. NO S/S OF RESPIRATORY DISTRESS. WILL CONTINUE TO MONITOR PT. ALL VITALS REMAIN STABLE.
[2019-06-02] MEDS: GENTAMICIN SULFATE 400 MG in D5W 5% 100 ML IV SCH (18:23)
--- NOTE | 2019-06-02 18:29 | NUR ---
Nutrition Pt states she "does not have an appetite". Encouraged pt to try to eat both her lunch and dinner, pt stated that she was not hungry at this time. Offered crackers as well as jello, pt still refused. Will continue to encourage eating as well as pass it along to NOC shift.
--- NOTE | 2019-06-02 19:25 | NUR ---
Opening Shift Note Assumed care of patient, awake and alert, resting in bed. No S/S of distress/SOB or pain. Instructed on POC and to call for assist PRN, will continue to monitor for changes Q1hr and PRN. Call light and bedside table are within reach. Bed is in lowest position and bed rails 2x.
[2019-06-02] MEDS: TEMAZEPAM 15 MG CAP PO PRN (20:59)
[2019-06-02] MEDS: LINEZOLID 600MG/300ML 300 ML IV SCH (21:11)
[2019-06-03] MEDS: HYDROcodone-ACET 10/325MG TAB PO PRN ×4 (00:57→19:51)
--- NOTE | 2019-06-03 01:57 | NUR ---
Pain reassessment Patient states pain level is 3. Patient is resting in bed comfortably. Call light and bedside table are within reach. Will continue to monitor Q1 and PRN.
[2019-06-03 05:27] LABS: Basophils # (auto) 0 10 ^3/uL (0-0.2); Eosinophils # (auto) 0.4 10 ^3/uL (0-0.8); Hemoglobin 9.1 g/dL (12.2-16.2); Lymphocytes # (auto) 1.1 10 ^3/uL (0.4-5.4); Monocytes # (auto) 0.5 10 ^3/uL (0-1.3); Neutrophils # (auto) 1.7 10 ^3/uL (1.6-8.6); White Blood Cell 3.8 10^3/uL (4.4-10.8)
[2019-06-03 05:28] LABS: Basophils % (auto) 1.2 % (0.0-2.0); Eosinophils % (auto) 10.9 % (0.0-7.0); Hematocrit 29.2 % (36.0-46.0); Lymphocytes % (auto) 29.1 % (10.0-50.0); Mean Corpuscular Hemoglobin 22.6 pg (28.0-32.0); Mean Corpuscular Hgb Conc. 31.1 g/dL (32.0-36.0); Mean Corpuscular Volume 72.9 fL (80.0-100.0); Monocytes % (auto) 14.5 % (0.0-12.0); Neutrophils % (auto) 44.3 % (37.0-80.0); Nucleated Red Blood Cells % 0.2 %; Platelet Count (auto) 172 10^3/uL (140-450); Red Blood Cells 4.01 10^6/uL (4.0-5.20); Red Cell Distribution Width 18.7 % (11.8-14.3)
[2019-06-03] MEDS: GABAPENTIN 300 MG CAP PO SCH ×4 (05:31→21:54)
[2019-06-03] MEDS: SIMETHICONE 80 MG CHEWABLE TABLET PO PRN ×2 (05:39→14:58)
[2019-06-03 05:47] LABS: BUN/Creatinine Ratio 8.8; Calcium 7.6 mg/dL (8.5-10.1); Potassium 3.6 mmol/L (3.5-5.1)
[2019-06-03 05:59] VITALS: BP 100/62
[2019-06-03] MEDS: IPRATROPIUM BROM 0.5 MG/2.5ML INH SOL NEB SCH ×3 (06:21→22:22)
[2019-06-03] MEDS: ALBUTEROL SULF 2.5 MG/0.5ML(0.5%) NEB SOLN NEB SCH ×3 (06:21→22:23)
[2019-06-03] MEDS: SODIUM CHLORIDE 0.9% 1,000 ML IV SCH ×2 (07:10→20:05)
--- NOTE | 2019-06-03 07:49 | NUR ---
Opening Note Assumed pt care from [facility] nurse. Pt is a/o4 with no s/s of distress or SOB. Pt is currently laying in bed with no s/s of distress. Pt currently c/o pain in her abdomen 10/10 cramp-y in nature; discussed available pain medication. Encouraged pt to try to eat her breakfast this morning; pt stated that she would try. Discussed POC with pt; pt verbalized understanding. Safety measures maintained with call light within reach, bed in lowest position and side rails up. Will continue to monitor for changes.
[2019-06-03 09:00] VITALS: BP 134/75
[2019-06-03] MEDS: FLUCONAZOLE 200MG/100ML 100 ML IV SCH (09:28)
[2019-06-03] MEDS: LINEZOLID 600MG/300ML 300 ML IV SCH ×2 (09:28→21:34)
[2019-06-03] MEDS: PANTOPRAZOLE 40 MG TAB PO SCH (09:28)
[2019-06-03] MEDS: ENOXAPARIN SOD 40 MG/0.4 ML SYRINGE SC SCH (09:29)
--- NOTE | 2019-06-03 12:15 | NUR ---
Vasquez D/C'ed Vasquez catheter removed per MD's request. 400mL of urine drained from bag. Pt tolerated removal well. Pt instructed to all when need to void. Will continue to monitor. Addendum: 06/03/19 at 1346 by RADHA ZUNIGA RN RN Pt has since voided sice d/c of vasquez without any difficulty. Will continue to monitor.
--- NOTE | 2019-06-03 12:20 | NUR ---
Tele Box 25 D/c'ed Tele box d/c'ed and sent back to monitor staff. Staff made aware of downgrade and return of monitor.
[2019-06-03 12:31] VITALS: BP 132/87
--- NOTE | 2019-06-03 14:26 | NUR ---
assessment Patient is a 63 year old female who is alert and oriented. Prior to admission patient lived home with family and functioned with assistance. Per patient she will return home to her prior living arrangements post discharge and family will transport her home. Patient informed me her PCP is Dr Korey Decker. Patient has a wheelchair, cane, shower chair and fww for home use. Patient informed me she has good family support. Patient informed me she is on service with [facility]. Patient will need a resumption order on discharge. Patient has [facility] caregiver. Patient informed me she has no safety concerns regarding returning home on discharge. I informed patient she has a right to speak to a high school social studies teacher regarding all care. I informed patient she has a right to participate in any and all discharge planning. Patient has a POA and advanced directive. Patients daughter Kayley is her POA. Patient verbalized understanding and agreed to discharge plan. Addendum: 06/03/19 at 1428 by Ariana HASKINS Amended: Links added.
[2019-06-03 17:00] VITALS: BP 120/45
[2019-06-03] MEDS: GENTAMICIN SULFATE 400 MG in D5W 5% 100 ML IV SCH (18:02)
--- NOTE | 2019-06-03 19:30 | NUR ---
Opening Shift Note Assumed care of patient, awake and alert. No S/S of distress/SOB or pain. Instructed on POC and to call for assist PRN, will continue to monitor for changes Q1hr and PRN.
--- NOTE | 2019-06-03 20:08 | NUR ---
Patient reports feeling that her tongue and throat are swollen after eating dinner. Patient has no documented food allergies. States that this has recently been occurring and she is unsure of what foods are causing it. States that she ate potatoes and corn this evening. Requesting Benadryl. Hospitalist paged to request orders.
--- NOTE | 2019-06-03 20:35 | NUR ---
Spoke with Hospitalist, Frantz Summers NP. New orders received. Will follow through.
[2019-06-03] MEDS ORDERED: diphenhdrAMINE HCL 25 MG CAP PO ONE (20:45)
[2019-06-03] MEDS: ONDANSETRON HCL 4 MG/2 ML VIAL IV PRN (21:34)
[2019-06-03 21:49] VITALS: BP 148/64
[2019-06-03] MEDS: diazePAM 5 MG TAB PO PRN (21:56)
[2019-06-03] MEDS: TEMAZEPAM 15 MG CAP PO PRN (21:56)
--- NOTE | 2019-06-04 01:26 | NUR ---
ROUNDS Patient is resting in bed with eyes closed. respirations are even and non-labored. Rise and fall of chest observed. No distress noted. Will continue to monitor for changes PRN.
[2019-06-04] MEDS: HYDROcodone-ACET 10/325MG TAB PO PRN ×5 (01:53→21:40)
[2019-06-04 04:48] VITALS: BP 102/56
[2019-06-04] MEDS: GABAPENTIN 300 MG CAP PO SCH ×3 (06:33→21:41)
[2019-06-04] MEDS: ALBUTEROL SULF 2.5 MG/0.5ML(0.5%) NEB SOLN NEB SCH ×3 (06:36→21:51)
[2019-06-04] MEDS: IPRATROPIUM BROM 0.5 MG/2.5ML INH SOL NEB SCH ×3 (06:36→21:51)
--- NOTE | 2019-06-04 08:00 | NUR ---
Opening Shift Note Assumed care of patient, awake, alert and oriented X4. No S/S of distress/SOB, complains of pain, /, medicated with prescribed pain mediation. Right upper chest wall Clayton Cath, accessed, with dressing clean, dry and intact, infusing 0.9% NS @ 75 ml/hr. Instructed on POC and to call for assist PRN, verbalized understanding. Bed locked, in lowest position, call light within reach, will continue to monitor for changes Q1hr and PRN.
[2019-06-04 09:21] VITALS: BP 130/83
--- NOTE | 2019-06-04 10:30 | NUR ---
ROUNDS Dr Marley at bedside for rounds, new orders received and followed through. Patient updated on plan of care, verbalized understanding.
[2019-06-04] MEDS: PANTOPRAZOLE 40 MG TAB PO SCH (10:36)
[2019-06-04] MEDS: FLUCONAZOLE 100 MG TAB PO SCH (10:36)
--- NOTE | 2019-06-04 11:32 | NUR ---
I called [facility] and spoke with Flower ([phone])-faxed her requested face sheet-she will run financials and let me know if they can take this patient-I let her know that patient is on service with [facility].
--- NOTE | 2019-06-04 11:33 | NUR ---
[employer] consult regarding resuming Home Health. Pt was previously on service with [facility] and will be resuming with this service upon discharge. [facility] contacted and information faxed to [facility]. Information received and services to resume upon discharge. Will notify covering nurse and CAMILLE II of the above. Addendum: 06/04/19 at 1148 by NITHIN LONGO SS Amended: Links added.
[2019-06-04 12:37] VITALS: BP 117/77
--- NOTE | 2019-06-04 13:36 | NUR ---
I called Flower at [facility] asking if they are able to accept this patient-she will give me a call back.
[2019-06-04] MEDS: ONDANSETRON HCL 4 MG/2 ML VIAL IV PRN (14:07)
--- NOTE | 2019-06-04 14:20 | NUR ---
I faxed home IV ATB order to [facility]. I received a call from Flower at [facility] letting me know that they can not accept this patient because she has IE attached to her medi-martín and they do not have a contract with [facility].
[2019-06-04 17:00] VITALS: BP 127/46
[2019-06-04] MEDS: GENTAMICIN SULFATE 400 MG in D5W 5% 100 ML IV SCH (18:46)
--- NOTE | 2019-06-04 19:01 | NUR ---
Care endorsed to REBECCA Smith, night nurse.
--- NOTE | 2019-06-04 19:25 | NUR ---
OPENING SHIFT NOTE Assumed care of patient who is A&O x4. Currently on RA with no s/s of distress. Reports 10/10 upper abdominal pain. Informed patient that pain medication was not yet due and offered nonpharmacologic pain relief options, to which patient declines. Port-a-cath in right upper chest accessed and patent. Flushed with 10mL NS. POC discussed and patient verbalizes understanding. Bed is in low locked position with side rails up x2. Call light is within reach and patient encouraged to call for assistance when needed. Will continue to monitor for changes PRN.
--- NOTE | 2019-06-04 20:38 | NUR ---
Patient placed on bed garcia. Voided x1. Suzie-care provided. Patient tolerated well.
[2019-06-04] MEDS: LINEZOLID 600MG TABLET PO SCH (21:41)
[2019-06-04] MEDS: TEMAZEPAM 15 MG CAP PO PRN (21:41)
[2019-06-04 21:46] VITALS: BP 119/55
--- NOTE | 2019-06-05 00:13 | NUR ---
PAIN Patient reports lower abdominal pain. Heat pack provided. Will reassess.
--- NOTE | 2019-06-05 00:16 | NUR ---
Hospitalist paged to notify that Patient is requesting a "one time shot" for pain. States that she is experiencing 10/10 abdominal pain, unresolved with current orders for [place] .
--- NOTE | 2019-06-05 00:37 | NUR ---
Received call from Hospitalist Frantz Summers NP. New orders received. Will input and follow through.
[2019-06-05] MEDS ORDERED: MORPHINE SULF INJ 2 MG/ML SYRINGE 1ML IV ONE (00:45)
--- NOTE | 2019-06-05 02:11 | NUR ---
ROUNDS Patient is resting in bed with eyes closed. Respirations are even and nonlabored. Rise and fall of chest noted. Will continue to monitor.
[2019-06-05] MEDS: HYDROcodone-ACET 10/325MG TAB PO PRN ×2 (03:20→10:47)
--- NOTE | 2019-06-05 03:20 | NUR ---
Suzie-care provided after episode of incontinence. Full linen change provided and patient placed into clean gown and socks. Repositioned for comfort.
[2019-06-05 05:23] VITALS: BP 121/74
[2019-06-05] MEDS: GABAPENTIN 300 MG CAP PO SCH ×3 (05:36→14:18)
[2019-06-05] MEDS: ALBUTEROL SULF 2.5 MG/0.5ML(0.5%) NEB SOLN NEB SCH ×2 (06:10→13:55)
[2019-06-05] MEDS: IPRATROPIUM BROM 0.5 MG/2.5ML INH SOL NEB SCH ×2 (06:10→13:55)
--- NOTE | 2019-06-05 06:10 | NUR ---
Respiratory note: SCHEDULED MED NEB TX NOT GIVEN. PT WAS ASLEEP, NO DISTRESS NOTED. PT STATED SHE DID NOT WANT TX AT THIS TIME. HR 65, RR 16, 94% ON ROOM AIR. BS ARE CLEAR. PATIENT STATED SHE WILL TAKE THE NEXT SCHEDULED TX.
--- NOTE | 2019-06-05 08:00 | NUR ---
Opening Shift Note Assumed care of patient, awake, alert and oriented X4. No S/S of distress/SOB or pain. Right upper chest wall Clayton Cath, accessed and saline locked, dressing is clean, dry and intact. Instructed on POC and to call for assist PRN, verbalized understanding. Bed locked, in lowest position, call light within reach, will continue to monitor for changes Q1hr and PRN.
[2019-06-05 08:49] VITALS: BP 111/69
[2019-06-05] MEDS: FLUCONAZOLE 100 MG TAB PO SCH (10:09)
[2019-06-05] MEDS: LINEZOLID 600MG TABLET PO SCH (10:09)
[2019-06-05] MEDS: PANTOPRAZOLE 40 MG TAB PO SCH (10:09)
[2019-06-05] MEDS: fentaNYL 50MCG/HR 50 MCG/HR PAT TD SCH (11:05)
--- NOTE | 2019-06-05 12:15 | NUR ---
ROUNDS Dr dc at bedside for rounds, new orders received and followed through. Patient updated on plan of care, verbalized understanding.
[2019-06-05 13:00] VITALS: BP 117/48
[2019-06-05] MEDS: SIMETHICONE 80 MG CHEWABLE TABLET PO PRN (13:20)
[2019-06-05] MEDS: diazePAM 5 MG TAB PO PRN (13:20)
--- NOTE | 2019-06-05 14:28 | NUR ---
Placed followed up called to [facility]:) spoke to Honey. Per Honey IV ab[facility] between 19:00-23:00. Informed REBECCA Morin.
[2019-06-05 14:29] VITALS: BP 126/64
== END 2019-06-05 15:09 | disposition home or self-care (01) | DRG 871 ==
LOC: ER 12:54 → EDBD 12:54 → TELE 12:55 → ICU WEST 20:41 → TELE-CENTR 05-30 18:21 → CENTRAL 06-03 23:30
PROVIDERS: ADMIT Internal Medicine; ATTEND Internal Medicine
PROC: 30233N1 Transfusion of Nonautologous Red Blood Cells into Peripheral Vein, Percutaneous Approach (ICD-10-PCS; principal; 2019-06-02)
DX: A41.9 Sepsis, unspecified organism (principal); J15.0 Pneumonia due to Klebsiella pneumoniae; R65.21 Severe sepsis with septic shock; N39.0 Urinary tract infection, site not specified; F11.20 Opioid dependence, uncomplicated; J44.9 Chronic obstructive pulmonary disease, unspecified; G20 Parkinson's disease; I48.91 Unspecified atrial fibrillation; G89.4 Chronic pain syndrome; M19.90 Unspecified osteoarthritis, unspecified site; N18.9 Chronic kidney disease, unspecified; K21.9 Gastro-esophageal reflux disease without esophagitis; F32.9 Major depressive disorder, single episode, unspecified; F41.9 Anxiety disorder, unspecified; D64.9 Anemia, unspecified; Z87.01 Personal history of pneumonia (recurrent); Z22.322 Carrier or suspected carrier of Methicillin resistant Staphylococcus aureus; Z03.818 Encounter for observation for suspected exposure to other biological agents ruled out; Z86.711 Personal history of pulmonary embolism; Z79.899 Other long term (current) drug therapy; Z90.49 Acquired absence of other specified parts of digestive tract; Z90.710 Acquired absence of both cervix and uterus; Z88.5 Allergy status to narcotic agent; Z88.8 Allergy status to other drugs, medicaments and biological substances; Z88.6 Allergy status to analgesic agent; Z91.041 Radiographic dye allergy status; Z88.1 Allergy status to other antibiotic agents; Z98.51 Tubal ligation status; B96.20 Unspecified Escherichia coli [E. coli] as the cause of diseases classified elsewhere; I12.9 Hypertensive chronic kidney disease with stage 1 through stage 4 chronic kidney disease, or unspecified chronic kidney disease
CPT/HCPCS: 36415; 71045; 74018; 80048; 80053; 80170; 81001; 83036; 83605; 83880; 84443; 84484; 85007; 85025; 85027; 85379; 85610; 85730; 86850; 86870; 86900; 86901; 86922; 87040; 87070; 87081; 87086; 87088; 87186; 87635; 87804; 87880; 93005; 94640; 96361; 96365; 96367; 96375; 97116; 97530; 99291; G0378; J0696; J1450; J1642; J2405; J7060

== ENCOUNTER 2019-08-06 16:15 | Emergency (ER) | payer MEDICARE, MEDICAID ==
[~2019-08-06] VITALS: Ht 162.6 cm; Wt 45.4 kg
[2019-08-06 16:26] VITALS: BP 104/56
[2019-08-06 18:52] LABS: Basophils # (auto) 0 10 ^3/uL (0-0.2); Basophils % (auto) 0.8 % (0.0-2.0); Eosinophils # (auto) 0.5 10 ^3/uL (0-0.8)
[2019-08-06 18:55] LABS: Eosinophils % (auto) 9.3 % (0.0-7.0); Hematocrit 34.9 % (36.0-46.0); Hemoglobin 10.7 g/dL (12.2-16.2); Lymphocytes # (auto) 1.2 10 ^3/uL (0.4-5.4); Lymphocytes % (auto) 22.3 % (10.0-50.0); Mean Corpuscular Hemoglobin 24.7 pg (28.0-32.0); Mean Corpuscular Hgb Conc. 30.8 g/dL (32.0-36.0); Mean Corpuscular Volume 80.3 fL (80.0-100.0); Monocytes # (auto) 0.6 10 ^3/uL (0-1.3); Monocytes % (auto) 10.1 % (0.0-12.0); Neutrophils # (auto) 3.2 10 ^3/uL (1.6-8.6); Neutrophils % (auto) 57.5 % (37.0-80.0); Nucleated Red Blood Cells % 0.2 %; Platelet Count (auto) 344 10^3/uL (140-450); Red Blood Cells 4.34 10^6/uL (4.0-5.20); White Blood Cell 5.6 10^3/uL (4.4-10.8)
[2019-08-06 18:57] LABS: Red Cell Distribution Width 20.1 % (11.8-14.3)
[2019-08-06 19:38] LABS: Albumin 3.2 g/dL (3.4-5.0); Anion Gap 8 (5-15); Blood Urea Nitrogen 10 mg/dL (7-18); Calcium 8.6 mg/dL (8.5-10.1); Carbon Dioxide 21 mmol/L (21-32); Chloride 107 mmol/L (98-107); Glucose 91 mg/dL (74-106); Lipase 99 U/L (73-393); Potassium 4.3 mmol/L (3.5-5.1); Sodium 136 mmol/L (136-145)
[2019-08-06 19:45] LABS: Alanine Aminotransferase 17 U/L (13-56); Alkaline Phosphatase 114 U/L (45-117); Aspartate Aminotransferase 38 U/L (15-37); BUN/Creatinine Ratio 13.2; Bilirubin, Total 0.3 mg/dL (0.2-1.0); GFR African American 99 mL/min; GFR Non-African American 82 mL/min; Total Protein 7.5 g/dL (6.4-8.2)
== END 2019-08-06 20:05 | disposition left against medical advice (07) ==
LOC: ER 16:15
DX: R10.84 Generalized abdominal pain (principal); Z53.21 Procedure and treatment not carried out due to patient leaving prior to being seen by health care provider
CPT/HCPCS: 36415; 71045; 74176; 80053; 83690; 83735; 84484; 85025; 93005